=== PATIENT | male | born 1950 | race Caucasian/White ===

== ENCOUNTER → 2020-12-27 08:32 | Outpatient (CLI) | payer MEDICARE, SELFPAY ==
--- NOTE | ~2020-12-27 | XR_ITS ---
EXAMINATION: XR knee RT min 4V DATE: 12/27/2020 09:15 INDICATION: Right knee pain. TECHNIQUE: 4 views of right knee were obtained. COMPARISON: None. FINDINGS: There is varus angulation at the knee. No fracture. There is severe osteoarthritis of media l compartment and mild osteoarthritis of lateral and patellofemoral compartments. No knee joint effus ion. IMPRESSION: 1. Severe right knee osteoarthritis. Reviewed, dictated and finalized at location A. STEWARD
== END ==
PROVIDERS: PCP Family Medicine; Visit Provider Family Medicine
DX: M25.569 Pain in unspecified knee (principal); M17.11 Unilateral primary osteoarthritis, right knee
CPT/HCPCS: 73564

== ENCOUNTER 2021-03-19 23:36 | Emergency (ER) | payer MEDICARE, SELFPAY ==
--- NOTE | ~2021-03-19 | XR_ITS ---
EXAMINATION: XR chest 1V portable DATE: 03/20/2021 00:20 INDICATION: Weakness. TECHNIQUE: A single frontal view of the chest was obtained. COMPARISON: None. FINDINGS: There is no pneumonia, pleural effusion, or pneumothorax. The heart size is normal. There i s a healing/healed fracture of left sixth rib. There is a right shoulder arthroplasty. IMPRESSION: 1. No acute cardiopulmonary disease. Reviewed, dictated and finalized at location B.
[2021-03-19 23:38] VITALS: BP 113/98; PULSE 131; RESP 16; TEMP 36.4; O2SAT 95
--- NOTE | 2021-03-19 23:52 | ECG_ITS ---
Measurements Intervals [place] Rate: 128 P: [place]: 0 QRS: -58 QRSD: 114 T: 43 QT: 276 QTc: 403 Interpretive Statements ATRIAL FLUTTER/TACHYCARDIA WITH RAPID VENTRICULAR RESPONSE DELAYED PRECORDIAL R/S TRANSITION INFERIOR INFARCT, AGE INDETERMINATE BASELINE ARTIFACT- I, II, III, AVR, AVL, AVF, V1-V2, V6 ABNORMAL ECG Electronically Signed On 03-20-2021 7:17:28 CDT by Erick Lawrence D.O.
--- NOTE | 2021-03-19 23:54 | ED.GENADULT ---
HPI - General Adult General Chief complaint: Recheck/Abnormal Lab/Rx Stated complaint: out of meds/decreased mobility Time Seen by Provider: 03/19/21 23:43 Source: patient Mode of arrival: EMS Limitations: no limitations History of Present Illness HPI narrative: This is a 70 year old male with Parkinson's who presents for evaluation of increased stiffness. He states he ran out of his amantadine on Wednesday so he has been having increased stiffness. He states he came because he is having decreased mobility. He states there has been a mix up with the pharmacy so he is unsure when his medication will be filled. He has been able to take his other Parkinson's medications. HE has been noticed to be tachycardic on his initial vitals. He denies history of tachycardia or arrhythmia. He denies chest pain, cough, nausea, vomiting, fever or abdominal pain. He reports mild sob due to his stiffness. He does reports constipation. Related Data Home Medications Medication Instructions Recorded Confirmed amantadine HCl 100 mg capsule 100 mg PO TID cap 06/11/20 entacapone 200 mg tablet 200 mg PO .five times daily tablet 06/11/20 mirtazapine 30 mg tablet 30 mg PO .qhs tablet 06/11/20 tizanidine 2 mg tablet 2 mg PO QPM tablet 06/11/20 carbidopa 25 mg-levodopa 100 mg 1 tablet PO .COMPLEX tablet 12/19/20 tablet Allergies Allergy/AdvReac Type Severity Reaction Status Date / Time No Known Allergies Allergy Verified 03/20/21 00:16 Review of Systems Review of Systems: All systems reviewed & are unremarkable except as noted in HPI and below PMFSH Past Medical History Medical History H/O major depression Parkinson's Disease Surgical History Surgical History H/O cervical discectomy H/O knee surgery Traumatic fracture L knee 1968 S/P shoulder replacement Family History Family History Mother Diabetes mellitus Depression Cerebrovascular accident Glaucoma Melanoma Father Cerebrovascular accident Heart disease Hyperlipidemia Sibling Hyperlipidemia Heart disease Depression Lung cancer Grandparent Diabetes mellitus Social History Social History Smoking status: Never smoker Alcohol intake: current Substance use: never Substance use type: does not use Gender identity (if verbalized by the patient): Male Exam Const: General: no acute distress and alert HENMT: Head: normocephalic and atraumatic Face and sinus: face symmetric Eyes: EOM: EOMs intact bilaterally Resp: Effort & Inspection: normal respiratory effort and no retractions Auscultation: clear to auscultation bilaterally Cardio: Rate: tachycardic Heart sounds: no murmurs GI: GI Palp: Yes Soft to palpation, No Tenderness to palpation present (GI) and No Guarding due to palpation present (GI) Auscultation: normal bowel sounds Skin: General skin exam: normal color Rashes: no rashes Neuro: General: patient oriented x3 and moves all extremities Extrem: General: no pedal edema Psych: Mental Status: mental status grossly normal Affect: normal affect Course Reevaluation(s) Reevaluation #1: PAtient converted to normal sinus rhythm after 10 mg IV diltiazem Date: 03/20/21 Time: 01:02 Reevaluation #2: PAtient has remained in sinus. He states he does not need any addition medication in ER right now. I discussed plan to discharge home. 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 Date: 03/20/21 Time: 01:52 Consultations Consultation #1: I Discussed case with Dr Montgomery. Patient presented with tachycardia likely afib but he is in sinus rhythm with rate 85. She agrees to hold off on medication change. No anticoagulation. He is chads 1 . She will followup as out
[2021-03-20] VITALS (8 sets, daily range): BP systolic 102–130; BP diastolic 81–89; PULSE 72–91; RESP 15–21; O2SAT 92–97
[2021-03-20 00:04] LABS: Glucose Point of Care 124 (65-105)
[2021-03-20] MEDS: SODIUM CHLORIDE 0.9% IV 1,000 ML 999 ML IV CONT (00:11)
[2021-03-20 00:15] LABS: Basophils Absolute Auto 0.1 K/mm3 (0.0-0.1); Basophils Percent Auto 0.8 % (0.2-1.2); Eosinophils Absolute Auto 0.1 K/mm3 (0-0.3); Eosinophils Percent Auto 1.3 % (0-4.4); Hematocrit 48.3 % (42.0-52.0); Hemoglobin 17.1 g/dL (14.0-18.0); Immature Granulocyte Absolute 0.07 K/mm3 (0.00-0.031); Immature Granulocyte Percent A 0.8 % (0-0.5); Lymphocytes Absolute Auto 2.26 K/mm3 (0.9-3.2); Lymphocytes Percent Auto 25.1 % (18.3-44.2); Mean Corpuscular HGB Conc 35.4 g/dl (32-36); Mean Corpuscular Hemoglobin 33.6 pg (26-34); Mean Corpuscular Volume 94.9 fl (80-100); Mean Platelet Volume 9.3 fl (7.4-10.4); Monocytes Absolute Auto 1.1 K/mm3 (0.1-0.6); Monocytes Percent Auto 11.7 % (2.6-8.5); Neutrophils Absolute Auto 5.4 K/mm3 (1.3-6.7); Neutrophils Percent Auto 60.3 % (45.5-73.1); Platelet Count Result 297 k/mm3 (150-375); Red Blood Count 5.09 M/mm3 (4.6-6.20); Red Cell Distribution Width 11.9 % (11.5-14.5)
[2021-03-20 00:25] LABS: Alanine Aminotransferase 6 U/L (4-50); Albumin Level 4.6 g/dL (3.5-5.1); Alkaline Phosphatase 185 U/L (38-126); Anion Gap 9 mmol/L (8-16); Aspartate Amino Transferase 29 U/L (17-59); Blood Urea Nitrogen 31 mg/dL (9-20); Calcium 9.5 mg/dL (8.4-10.2); Carbon Dioxide 22 mmol/L (22-30); Chloride 108 mmol/L (98-107); Estimated CRCL calculation 74 ml/min; Estimated Glomerular Filt Rate > 60; Glucose 118 mg/dL (75-110); Magnesium 1.9 mg/dL (1.6-2.3); Potassium 4.3 mmol/L (3.4-5.0); Sodium 139 mmol/L (137-145)
[2021-03-20 00:26] LABS: Lactic Acid Reflex 1.1 mmol/L (0.7-2.1)
[2021-03-20] MEDS: dilTIAZem HCl INJ 25 MG/5 ML VIAL 10 MG IV PUSH (00:27)
[2021-03-20 00:34] LABS: D Dimer 0.27 ug/mL (<0.48)
--- NOTE | 2021-03-20 00:43 | ECG_ITS ---
Measurements Intervals [place] Rate: 70 P: 36 [place]: 183 QRS: -48 QRSD: 98 T: 29 QT: 363 QTc: 394 Interpretive Statements SINUS RHYTHM VENTRICULAR PREMATURE COMPLEX LEFT ANTERIOR FASCICULAR BLOCK BASELINE ARTIFACT- I, II, III, AVR, AVL, AVF, V1-V6 ABNORMAL ECG Electronically Signed On 03-20-2021 7:17:59 CDT by Erick Lawrence D.O.
[2021-03-20] MEDS: amantadine HCL 100 MG CAPSULE PO (01:15)
[2021-03-20 02:20] LABS: Add Urine Microscopic? YES; Appearance Urine Clear (Clear); Bilirubin Urine Negative (Negative); Blood Urine Negative (Negative); Color Urine Yellow (Yellow); Glucose Urine UA Negative (Negative); Ketones Urine Trace mg/dL (Negative); Leukocyte Esterase Ur Negative LEU/UL (Negative); Mucus Urine Rare /lpf; Nitrate Urine Negative (Negative); Protein Urine Negative (Negative); RBC Urine 0-2 /hpf (0-2); Specific Grav Ur 1.017 (1.001-1.035); Urobilinogen Urine Negative mg/dL (<2.0); WBC Urine 0-3 /hpf
[2021-03-20 08:25] LABS: INR 0.9
[2021-03-20 08:26] LABS: Partial Thromboplastin Time 27.4 SECONDS (22.3-36.8)
== END 2021-03-20 03:00 | disposition home or self-care (01) ==
PROVIDERS: Emergency Provider General Practice; PCP Family Medicine
DX: G20 Parkinson's disease (principal); I48.92 Unspecified atrial flutter; F32.9 Major depressive disorder, single episode, unspecified; Z96.619 Presence of unspecified artificial shoulder joint; R00.0 Tachycardia, unspecified; R94.31 Abnormal electrocardiogram [ECG] [EKG]; I49.3 Ventricular premature depolarization; I44.4 Left anterior fascicular block; R06.02 Shortness of breath
CPT/HCPCS: 36415; 71045; 80053; 81001; 82948; 83605; 83735; 85025; 85380; 85610; 85730; 93005; 96365; 99284; A9270; J7030

== ENCOUNTER 2021-11-28 14:00 | Emergency (ER) | payer OTHER, MEDICARE, SELFPAY ==
--- NOTE | ~2021-11-28 | XR_ITS ---
EXAMINATION: XR knee LT min 4V DATE: 11/28/2021 14:49 INDICATION: Left knee pain. TECHNIQUE: 4 views of left knee were obtained. COMPARISON: None. FINDINGS: Bone alignment is normal. No fracture. There is an osteochondroma of medial tibial metaphys is. There is mild tricompartmental osteoarthritis characterized by marginal osteophytes. No joint spa ce narrowing. There is a moderate-sized knee joint effusion. IMPRESSION: 1. Mild left knee osteoarthritis. 2. Moderate-sized left knee joint effusion. Reviewed, dictated and finalized at location A. E OPERATOR
[2021-11-28 14:27] VITALS: BP 149/88; PULSE 60; RESP 14; TEMP 36.7; O2SAT 98
--- NOTE | 2021-11-28 14:42 | ED.FALL ---
HPI - Fall General Chief Complaint: Fall Stated Complaint: faal, left knee pain Time Seen by Provider: 11/28/21 14:33 Source: patient Mode of arrival: wheelchair Limitations: no limitations History of Present Illness HPI Narrative: This is a 70 year old male that presents to the ER for left knee pain after a fall today. Reports he tripped over a cart and work. Reports landing directly onto his left knee. Reports pain and swelling in the knee. Reports decreased ROM due to pain. Denies hitting his head, loss of consciousness, other injuries, or numbness. Related Data Home Medications Medication Instructions Recorded Confirmed entacapone 200 mg tablet 200 mg PO .five times daily tablet 06/11/20 03/26/21 mirtazapine 30 mg tablet 30 mg PO .qhs tablet 06/11/20 03/26/21 tizanidine 2 mg tablet 2 mg PO QPM tablet 06/11/20 03/26/21 carbidopa 25 mg-levodopa 100 mg 1 tablet PO .COMPLEX tablet 12/19/20 03/26/21 tablet carbidopa ER 50 mg-levodopa 200 mg 1 tablet PO QHS 10/17/21 tablet,extended release Allergies Allergy/AdvReac Type Severity Reaction Status Date / Time No Known Allergies Allergy Verified 10/17/21 08:51 Review of Systems Review of Systems: CONSTITUTIONAL: Denies fever MUSCULOSKELETAL: Reports joint pain, and myalgia. NEUROLOGIC: Denies numbness, or weakness. All systems reviewed & are unremarkable except as noted in HPI and below PMFSH Past Medical History Medical History H/O major depression Parkinson's Disease Surgical History Surgical History H/O cervical discectomy H/O knee surgery Traumatic fracture L knee 1968 S/P shoulder replacement Family History Family History Mother Diabetes mellitus Depression Cerebrovascular accident Glaucoma Melanoma Father Cerebrovascular accident Heart disease Hyperlipidemia Sibling Hyperlipidemia Heart disease Depression Lung cancer Grandparent Diabetes mellitus Social History Social History Second hand tobacco smoke exposure: No Alcohol intake: current Alcohol use details: rare Substance use: never Substance use type: does not use Gender identity (if verbalized by the patient): Male Exam Narrative: GENERAL: Well-appearing, well-nourished, and in no acute distress. HEAD: Normocephalic, atraumatic. EYES: EOMI. EXTREMITIES: Normal range of motion. Mild edema about the left knee anteriorly. Normal DP pulses. Normal sensation SKIN: Warm, dry, no rash. NEURO: No focal deficits. Alert and oriented x3. PSYCH: Normal mood and affect Course Vital Signs Vital signs: Vital Signs Temperature 98.0 F 11/28/21 14:27 Pulse Rate 60 11/28/21 14:27 Respiratory Rate 14 11/28/21 14:27 Blood Pressure 149/88 H 11/28/21 14:27 Pulse Oximetry 98 11/28/21 14:27 Temperature 98.0 F 11/28/21 14:27 Pulse Rate 60 11/28/21 14:27 Respiratory Rate 14 11/28/21 14:27 Blood Pressure 149/88 H 11/28/21 14:27 Pulse Oximetry 98 11/28/21 14:27 MDM - Fall MDM Narrative Medical decision making narrative: This is a 70-year-old male that presents the emergency department after a ground-level fall today with left knee pain. Patient is neurologically intact. Left knee x-ray is without acute osseous abnormalities. Does show a moderate size left knee joint effusion. Patient placed in an Maciel wrap and instructed to use walker. Will be given orthopedics for follow-up. He is stable and felt appropriate for further outpatient evaluation. He was given warnings to return to the ER Imaging Data Radiologist's impression: ITS Impressions Knee X-Ray 11/28/21 14:53 IMPRESSION: 1. Mild left knee osteoarthritis. 2. Moderate-sized left knee joint effusion. Critical Care Time Critical Care T
== END 2021-11-28 15:45 | disposition home or self-care (01) ==
PROVIDERS: Emergency Provider Emergency Medicine; PCP Family Medicine
DX: S83.92XA Sprain of unspecified site of left knee, initial encounter (principal); G20 Parkinson's disease; F32.9 Major depressive disorder, single episode, unspecified; W01.0XXA Fall on same level from slipping, tripping and stumbling without subsequent striking against object, initial encounter
CPT/HCPCS: 73564; 99283

== ENCOUNTER → 2022-04-07 14:02 | Outpatient (CLI) | payer MEDICARE, SELFPAY ==
--- NOTE | ~2022-04-07 | XR_ITS ---
XR knee RT 3V DATE: 04/07/2022 14:47 INDICATION: Right knee pain TECHNIQUE: AP, lateral, sunrise views COMPARISON: 12/27/2020 right knee FINDINGS: Again noted is prominent medial compartment joint space narrowing and medial as well as lat eral and patellofemoral periarticular spurring. There is varus deformity of the knee. There is mild to moderate osteopenia. No fracture or dislocation. Mild suprapatellar bursa knee joint effusion is suggested. No radiopaque intra-articular loose body or chondrocalcinosis, periosteal reaction or bone destructio n is evident. IMPRESSION: Tricompartment osteophytosis, most severe at the medial compartment Reviewed, dictated and finalized at location B.
== END ==
PROVIDERS: PCP Family Medicine; Visit Provider Physician Assistant Medical
DX: M25.561 Pain in right knee (principal); M25.761 Osteophyte, right knee
CPT/HCPCS: 73562

== ENCOUNTER 2022-06-26 13:36 | Emergency (ER) | payer MEDICARE, SELFPAY ==
--- NOTE | ~2022-06-26 | XR_ITS ---
EXAMINATION: XR shoulder LT 1V, XR clavicle LT DATE: 06/26/2022 14:15 INDICATION: Left shoulder pain post fall TECHNIQUE: 1. AP view of the left shoulder was obtained. 2. AP and angled AP views of the left clavicle were obtained.. COMPARISON: Chest radiograph dated 03/20/2021 FINDINGS: Bone alignment is normal. Chronic healed fractures at the posterior left fifth and anterior left four th and fifth ribs which can be seen on the prior chest radiograph. No other fractures identified. Spe cifically no fracture of the left clavicle. Mild to moderate left glenohumeral and acromioclavicular osteoarthritis. Visualized portions of the lungs are clear. Soft tissues are unremarkable. IMPRESSION: Mild to moderate left apical mid clavicular and glenohumeral osteoarthritis. No acute osseous abnorma lity. Reviewed, dictated and finalized at location A. IMPRESSION: Mild to moderate left apical mid clavicular and glenohumeral osteoarthritis. No acute osseous abnormality.
[2022-06-26 13:52] VITALS: BP 116/81; PULSE 77; RESP 18; TEMP 36.7; O2SAT 98
--- NOTE | 2022-06-26 14:49 | ED.FALL ---
HPI - Fall General Chief Complaint: Fall Stated Complaint: fall with left shoulder pain Time Seen by Provider: 06/26/22 14:27 Source: RN notes reviewed History of Present Illness HPI Narrative: Patient presents emergency room from home for fall. Patient states just prior to arrival he was walking when he had not lifted his foot high enough and tripped over there the sidewalk states he fell and had placed his left arm out to brace his fall he states he has pain in his left anterior shoulder since the fall he denies striking his head or loss of consciousness denies any neck pain chest pain shortness of breath denies any numbness or tingling in the extremities denies any other extremity pain Related Data Home Medications Medication Instructions Recorded Confirmed entacapone 200 mg tablet 200 mg PO .five times daily 06/11/20 04/06/22 mirtazapine 30 mg tablet 30 mg PO .qhs 06/11/20 04/06/22 tizanidine 2 mg tablet 2 mg PO QPM 06/11/20 04/06/22 carbidopa 25 mg-levodopa 100 mg 1 tablet PO .COMPLEX 12/19/20 04/06/22 tablet carbidopa ER 50 mg-levodopa 200 mg 1 tablet PO QHS 10/17/21 04/06/22 tablet,extended release fluoxetine 20 mg capsule 20 mg PO DAILY 04/06/22 04/06/22 Allergies Allergy/AdvReac Type Severity Reaction Status Date / Time No Known Allergies Allergy Verified 06/26/22 13:37 Review of Systems Review of Systems: Gen.: Denies fevers or chills Eyes: Denies eye pain or visual change ENT: Denies congestion Respiratory: Denies shortness of breath or cough CV: Denies chest pain or palpitations GI: Denies abdominal pain nausea, emesis Musculoskeletal: See HPI Neuro: Denies numbness, tingling, weakness or focal weakness Skin: Denies rash Except as documented, all other systems reviewed and negative [facility] Past Medical History Medical History Dizziness H/O major depression Low back ache Parkinson's Disease Right knee pain Surgical History Surgical History H/O cervical discectomy H/O knee surgery Traumatic fracture L knee 1968 S/P shoulder replacement Family History Family History Mother Diabetes mellitus Depression Cerebrovascular accident Glaucoma Melanoma Father Cerebrovascular accident Heart disease Hyperlipidemia Sibling Hyperlipidemia Heart disease Depression Lung cancer Grandparent Diabetes mellitus Social History Social History Smoking status: Never smoker Second hand tobacco smoke exposure: No Alcohol intake: current Alcohol use details: rare Substance use: never Substance use type: does not use Gender identity (if verbalized by the patient): Male Agree to blood products: Yes Exam Narrative: APPEARANCE: No acute distress, nontoxic, resting in bed EYES: EOMI HEENT: Normocephalic, atraumatic, OMM Neck: Supple, no midline tenderness palpation full range of motion without pain RESPIRATORY: No respiratory distress Clear to auscultation bilaterally with no rhonchi wheezing or rales. CARDIOVASCULAR: Regular rate and rhythm without murmurs rubs or gallops. ABDOMINAL: Soft, nontender, MUSCULOSKELETAl: Moves all extremities. No clubbing, cyanosis or edema. No tenderness of the right upper extremity bilateral lower extremities tender palpation of the right anterior shoulder as well as at the anterior portion of the clavicle no swelling or ecchymosis pain with flexion or abduction of the shoulder greater than 90 degrees no tenderness left elbow or wrist, radial pulse 2+ neurovascular intact NEURO: Awake and alert. Following commands, speech normal, no focal deficits SKIN:: Warm, dry. No rashes lesions or abrasions PSYCHIATRIC: Normal affect/mood, Course Course Emergency Course: Discussed with patient results of workup and diagnosis.
[2022-06-26] MEDS: IBUPROFEN 600 MG TABLET PO (15:02)
== END 2022-06-26 15:14 | disposition home or self-care (01) ==
LOC: ANHED 14:59
PROVIDERS: Emergency Provider Emergency Medicine; PCP Family Medicine
DX: S40.012A Contusion of left shoulder, initial encounter (principal); G20 Parkinson's disease; F32.9 Major depressive disorder, single episode, unspecified; Z96.619 Presence of unspecified artificial shoulder joint; M19.012 Primary osteoarthritis, left shoulder; W01.0XXA Fall on same level from slipping, tripping and stumbling without subsequent striking against object, initial encounter
CPT/HCPCS: 73000; 73020; 99284; A9270

== ENCOUNTER 2022-09-23 12:44 | Day surgery (SDC) | payer MEDICARE, SELFPAY ==
[2022-09-11 11:17] VITALS: BMI 25.9
--- NOTE | 2022-09-22 12:37 | PM.HPGS ---
History of Present Illness History of Present Illness Consent: Risks, benefits, and alternatives have been discussed and questions answered. Patient agrees to proceed with procedure. Chief complaint: Neoplasm Screening Narrative: Alan Mejia is a 71 year old male referred for colon cancer screening. Review of Systems Review of Systems: All systems reviewed & are unremarkable except as noted in HPI and below PMFSH Past Medical History Medical History Dizziness H/O major depression Low back ache Parkinson's Disease Right knee pain Surgical History Surgical History H/O cervical discectomy H/O knee surgery Traumatic fracture L knee 1968 S/P shoulder replacement Family History Family History Mother Diabetes mellitus Depression Cerebrovascular accident Glaucoma Melanoma Father Cerebrovascular accident Heart disease Hyperlipidemia Sibling Hyperlipidemia Heart disease Depression Lung cancer Grandparent Diabetes mellitus Social History Social History Smoking status: Never smoker Second hand tobacco smoke exposure: No Alcohol intake: never Alcohol use details: rare Substance use: never Substance use type: does not use Living arrangements: alone Gender identity (if verbalized by the patient): Male Spiritual care concerns: No Agree to blood products: Yes Meds Home Medications and Allergies Home Medications Medication Instructions Recorded Confirmed Type entacapone 200 mg tablet 200 mg PO .five times daily 06/11/20 09/23/22 History mirtazapine 30 mg tablet 30 mg PO .qhs 06/11/20 09/23/22 History tizanidine 2 mg tablet 2 mg PO QPM 06/11/20 09/23/22 History carbidopa 25 mg-levodopa 100 mg See Rx Instructions .Route .COMPLEX 12/19/20 09/23/22 History tablet amantadine HCl 100 mg capsule 100 mg PO TID #30 caps 03/20/21 09/23/22 Rx carbidopa ER 50 mg-levodopa 200 mg 1 tablet PO QHS 10/17/21 09/23/22 History tablet,extended release fluoxetine 20 mg capsule 20 mg PO DAILY 04/06/22 09/23/22 History multivitamin 1 tablet PO DAILY 07/02/22 09/23/22 History ibuprofen 200 mg tablet 400 mg PO HS PRN Pain (Scale Score 09/11/22 09/23/22 History 1-3) omega 9-uxg-xmj-fish oil 1,200 mg 2 cap PO DAILY 09/11/22 09/23/22 History (144 mg-216 mg) capsule (Fish Oil) polyethylene glycol 3350 17 17 g PO DAILY 09/11/22 09/23/22 History gram/dose oral powder (Miralax) vitamin B complex (B 1 tablet PO DAILY 09/11/22 09/23/22 History Complex-Vitamin B12 tablet) vitamin E 30 unit capsule 3 unit PO DAILY 09/11/22 09/23/22 History Allergies Allergy/AdvReac Type Severity Reaction Status Date / Time No Known Allergies Allergy Verified 09/23/22 13:07 Exam Const: General: alert Orientation/consciousness: patient oriented x3 Resp: Auscultation: clear to auscultation bilaterally Cardio: Rhythm: regular rhythm GI: GI Palp: Yes Soft to palpation and No Tenderness to palpation present (GI) Neuro: General: patient oriented x3 Assessment and Plan Assessment and plan (1) Colon cancer screening: Code(s): Z12.11 - Encounter for screening for malignant neoplasm of colon Status: Acute Assessment and Plan: Colonoscopy with possible biopsy or polypectomy or cautery or injection of substances.
[2022-09-23 13:10] VITALS: BMI 24.0
[2022-09-23 13:27] VITALS: BP 134/81; PULSE 65; RESP 20; TEMP 36.7; O2SAT 99
[2022-09-23] MEDS: LACTATED RINGERS 1,000 ML 150 ML IV CONT (13:28)
--- NOTE | 2022-09-23 13:35 | WPDANESEPPF ---
Anes - Initial Pre Proc Eval Procedure: Operation Date: 09/23/22 14:15 Proposed Procedures p Screening Colonoscopy - Sheldon James MD Date/Time: 09/23/22 13:35 Surgeon: Sheldon James MD Pre Op Diagnosis: Neoplasm Screening Patient Data Age: 71 Gender: M Height: 1.7 m Weight: 69.7 kg Last Vital Signs Temp 36.7 C 09/23/22 13:27 Pulse 65 09/23/22 13:27 Resp 20 09/23/22 13:27 BP 134/81 09/23/22 13:27 Pulse Ox 99 09/23/22 13:27 O2 Del Method Room Air 09/23/22 13:27 Allergies Allergy/AdvReac Type Severity Reaction Status Date / Time No Known Allergies Allergy Verified 09/23/22 13:07 Home Medications Medication Instructions Recorded Confirmed Type entacapone 200 mg tablet 200 mg PO .five times daily 06/11/20 09/23/22 History mirtazapine 30 mg tablet 30 mg PO .qhs 06/11/20 09/23/22 History tizanidine 2 mg tablet 2 mg PO QPM 06/11/20 09/23/22 History carbidopa 25 mg-levodopa 100 mg See Rx Instructions .Route .COMPLEX 12/19/20 09/23/22 History tablet amantadine HCl 100 mg capsule 100 mg PO TID #30 caps 03/20/21 09/23/22 Rx carbidopa ER 50 mg-levodopa 200 mg 1 tablet PO QHS 10/17/21 09/23/22 History tablet,extended release fluoxetine 20 mg capsule 20 mg PO DAILY 04/06/22 09/23/22 History multivitamin 1 tablet PO DAILY 07/02/22 09/23/22 History ibuprofen 200 mg tablet 400 mg PO HS PRN Pain (Scale Score 09/11/22 09/23/22 History 1-3) omega 3-cln-gtu-fish oil 1,200 mg 2 cap PO DAILY 09/11/22 09/23/22 History (144 mg-216 mg) capsule (Fish Oil) polyethylene glycol 3350 17 17 g PO DAILY 09/11/22 09/23/22 History gram/dose oral powder (Miralax) vitamin B complex (B 1 tablet PO DAILY 09/11/22 09/23/22 History Complex-Vitamin B12 tablet) vitamin E 30 unit capsule 3 unit PO DAILY 09/11/22 09/23/22 History Patient hx anesthesia problems: none Family hx anesthesia problems: none Results Review: All pre-operative results and documents have been reviewed as part of the pre-operative evaluation. [facility] Past Medical History Medical History Dizziness H/O major depression Low back ache Parkinson's Disease Right knee pain Surgical History Surgical History H/O cervical discectomy H/O knee surgery Traumatic fracture L knee 1968 S/P shoulder replacement Family History Family History Mother Diabetes mellitus Depression Cerebrovascular accident Glaucoma Melanoma Father Cerebrovascular accident Heart disease Hyperlipidemia Sibling Hyperlipidemia Heart disease Depression Lung cancer Grandparent Diabetes mellitus Social History Social History Smoking status: Never smoker Second hand tobacco smoke exposure: No Alcohol intake: never Alcohol use details: rare Substance use: never Substance use type: does not use Living arrangements: alone Gender identity (if verbalized by the patient): Male Spiritual care concerns: No Agree to blood products: Yes Anes - Eval Final PreProcedure Day of Procedure 09/23/22 13:35 Patient weight: normal Heart: regular rate and rhythm Lungs: clear to auscultation Airway: Mallampati scale class II Neurological: alert and oriented ASA classification: III Emergent: no Anesthetic plan: proceed Anesthesia type and monitoring: general GIVS and standard monitoring Results Review: All pre-operative results and documents have been reviewed as part of the pre-operative evaluation. Informed Consent: The patient's anesthetic plan and its attendant risks and benefits were discussed with the patient/family/POA. Questions were solicited and answers provided to the satisfaction of the patient/family/POA.
[2022-09-23 14:35] VITALS: BP 97/65; PULSE 57; RESP 20; O2SAT 99
[2022-09-23 14:45] VITALS: BP 111/62; PULSE 49; RESP 20; O2SAT 100
--- NOTE | 2022-09-23 14:52 | WPDANESPN ---
Anes - Prog Note Post-Op Date/Time: 09/23/22 14:52 Cardiovascular status: normal Respiratory status: normal Airway patency: baseline Mental status: baseline Post-Op hydration status: normal Vital Signs: Last Vital Signs Temp 36.7 C 09/23/22 13:27 Pulse 49 L 09/23/22 14:45 Resp 20 09/23/22 14:45 BP 111/62 09/23/22 14:45 Pulse Ox 100 09/23/22 14:45 O2 Del Method Room Air 09/23/22 14:45 Pain Score (VAS): 0/10 I/O: Intake & Output 09/22/22 09/23/22 09/23/22 23:59 07:59 15:59 Intake Total 700 Balance 700 Patient Feedback: Patient satisfied with anesthetic care.
[2022-09-23 14:55] VITALS: BP 137/86; PULSE 54; RESP 20; O2SAT 100
== END 2022-09-23 15:19 | disposition home or self-care (01) ==
PROVIDERS: PCP Family Medicine; Visit Provider Internal Medicine Gastroenterology
PROC: 0DJD8ZZ Inspection of Lower Intestinal Tract, Via Natural or Artificial Opening Endoscopic (ICD-10-PCS; CPT 45378; principal; 2022-09-23 14:15)
DX: Z12.11 Encounter for screening for malignant neoplasm of colon (principal)
CPT/HCPCS: 45378

== ENCOUNTER 2024-02-22 09:28 | Emergency (ER) | payer MEDICARE, SELFPAY ==
--- NOTE | ~2024-02-22 | CT_ITS ---
EXAMINATION: CT lumbar spine wo con DATE: 02/22/2024 10:17 INDICATION: Low back pain. TECHNIQUE: Computed tomography (CT) of the lumbar spine was performed without intravenous contrast. A utomated exposure control and iterative reconstruction technique were employed. The dose-length produ ct was 458.74 mGy-cm. COMPARISON: None FINDINGS: There is 18 degrees levoscoliosis of lumbar spine. There is 3 mm anterolisthesis of T11 on T12, 4 mm retrolisthesis of L1 on L2 and L2 on L3. There is mild chronic anterior wedging of T12 vert ebral body. There is severely decreased disc height at T10-T11, T11-T12, and L1-L2 through L5-S1. Rig ht ilium demonstrates cortical and trabecular thickening, consistent with Paget disease. The followin g disc levels are specifically discussed: L1-L2: The disc is bulging. There is mild bilateral facet joint osteoarthritis. There is moderate brandy ateral neural foraminal stenosis. There is mild central canal stenosis. L2-L3: The disc is bulging. There is moderate right and mild left facet joint osteoarthritis. There i s moderate right and mild left neural foraminal stenosis. There is mild central canal stenosis. L3-L4: The disc is bulging. There is severe bilateral facet joint osteoarthritis. There is mild bilat eral neural foraminal stenosis. There is mild central canal stenosis. L4-L5: The disc is bulging. There is severe bilateral facet joint osteoarthritis. There is moderate a nd moderate left neural foraminal stenosis. There is mild central canal stenosis. L5-S1: The disc is bulging. There is severe bilateral facet joint osteoarthritis. There is mild right and moderate left neural foraminal stenosis. There is mild central canal stenosis. IMPRESSION: 1. Severe lumbar spondylosis. 2. Lumbar levoscoliosis. Reviewed, dictated and finalized at location E.
[2024-02-22 09:33] VITALS: BP 134/87; PULSE 64; RESP 16; TEMP 36.3; O2SAT 95
[2024-02-22 09:37] VITALS: BP 134/87; O2SAT 97
--- NOTE | 2024-02-22 09:45 | PC.NURSE ---
Agree with assessments by Sopihe Ceballos certified nursing attendant.
--- NOTE | 2024-02-22 09:46 | ED.BACK ---
HPI - Back Pain/Injury General Chief Complaint: Back Pain/Injury Stated Complaint: back pain Time Seen by Provider: 02/22/24 09:37 Source: patient Mode of arrival: ambulatory Limitations: no limitations History of Present Illness HPI Narrative: This is a 73 year old male that presents to the ER for low back pain. Ongoing over the last 2 months. Reports the pain is mid low back. No known injuries or trauma. Worse upon standing. He has been taking Ibuprofen with little relief. Denies fever, dysuria, hematuria, numbness or weakness. Related Data Home Medications Medication Instructions Recorded Confirmed entacapone 200 mg tablet 200 mg PO .five times daily 06/11/20 12/28/23 mirtazapine 30 mg tablet 30 mg PO .qhs 06/11/20 12/28/23 tizanidine 2 mg tablet 2 mg PO QPM 06/11/20 12/28/23 carbidopa 25 mg-levodopa 100 mg See Rx Instructions .Route .COMPLEX 12/19/20 12/28/23 tablet carbidopa ER 50 mg-levodopa 200 mg 1 tablet PO QHS 10/17/21 12/28/23 tablet,extended release fluoxetine 20 mg capsule 20 mg PO DAILY 04/06/22 12/28/23 multivitamin 1 tablet PO DAILY 07/02/22 12/28/23 ibuprofen 200 mg tablet 400 mg PO HS PRN Pain (Scale Score 09/11/22 12/28/23 1-3) omega 3-snd-vwf-fish oil 1,200 mg 2 cap PO DAILY 09/11/22 12/28/23 (144 mg-216 mg) capsule (Fish Oil) polyethylene glycol 3350 17 17 g PO DAILY 09/11/22 12/28/23 gram/dose oral powder (Miralax) vitamin B complex (B 1 tablet PO DAILY 09/11/22 12/28/23 Complex-Vitamin B12 tablet) vitamin E 30 unit capsule 3 unit PO DAILY 09/11/22 12/28/23 Allergies Allergy/AdvReac Type Severity Reaction Status Date / Time No Known Allergies Allergy Verified 12/28/23 10:36 Review of Systems Review of Systems: CONSTITUTIONAL: Denies fever GENITOURINARY: Denies dysuria or hematuria. SKIN: Denies rash MUSCULOSKELETAL: Reports back pain, joint pain, and myalgia. NEUROLOGIC: Denies numbness, or weakness. All systems reviewed & are unremarkable except as noted in HPI and below PMFSH Past Medical History Medical History Dizziness H/O major depression Low back ache Muscle spasm of both lower legs Parkinson's Disease Surgical History Surgical History H/O cervical discectomy H/O knee surgery Traumatic fracture L knee 1968 S/P shoulder replacement Family History Family History Mother Diabetes mellitus Depression Cerebrovascular accident Glaucoma Melanoma Father Cerebrovascular accident Heart disease Hyperlipidemia Sibling Hyperlipidemia Heart disease Depression Lung cancer Grandparent Diabetes mellitus Social History Social History Smoking status: Never smoker Second hand tobacco smoke exposure: No Alcohol intake: never Alcohol use details: rare Substance use: never Substance use type: does not use Lack of Transportation: No Lack of Food: Never True Current Housing: I Have Housing Concerned About Future Housing: No Difficulty Paying Gas/Electric Bills: No Difficulty Paying for Meds: No Currently Unemployed: No Education: High School Diploma/GED Difficulty w/ Childcare or Family Care: No Living arrangements: alone Occupation/Education: retired Gender identity (if verbalized by the patient): Male Sexual Orientation (if Verbalized by the Patient): Straight or Heterosexual Spiritual care concerns: No Agree to blood products: Yes Exam Narrative: GENERAL: Well-appearing, well-nourished, and in no acute distress. HEAD: Normocephalic, atraumatic. EYES: EOMI. CHEST: Clear to auscultation. No respiratory distress. No wheezes rales or rhonchi HEART: Regular rate and rhythm. No murmur heard. Normal peripheral pulses. BACK: No midline spinal tenderness
[2024-02-22 10:56] VITALS: BP 115/69; PULSE 78; RESP 18; TEMP 36.8; O2SAT 99
== END 2024-02-22 11:00 | disposition home or self-care (01) ==
PROVIDERS: Emergency Provider Physician Assistant; PCP Family Medicine
DX: M54.50 Low back pain, unspecified (principal); M47.816 Spondylosis without myelopathy or radiculopathy, lumbar region; G20.A1 Parkinson's disease without dyskinesia, without mention of fluctuations; F32.A Depression, unspecified
CPT/HCPCS: 72131; 99284

== ENCOUNTER 2024-06-29 10:26 | Observation (INO) | payer MEDICARE, SELFPAY ==
[2024-06-29] VITALS (9 sets, daily range): BP systolic 112–175; BP diastolic 72–99; PULSE 55–65; RESP 14–20; TEMP 36.5–37.1; O2SAT 94–98; BMI 24.4
--- NOTE | ~2024-06-29 | CT_ITS ---
CT brain wo con Ordering provider: Kristie Jones PA-C History: 73 years Male with . LLE WEAKNESS . Comparison: None. Technique: CT of the head without contrast. Radiation reduction technique utilized. The dose-length product was 605.33 mGy-cm. FINDINGS: BRAIN PARENCHYMA AND CSF SPACES: Mild leukoaraiosis and diffuse cortical atrophy. Mild atheromatous d isease. No midline shift, mass effect or hemorrhage. The brain parenchyma and CSF spaces are otherwi se normal. VISUALIZED PARANASAL SINUSES: Well aerated. MASTOIDS: Well aerated. BONES: The bones appear intact. SOFT TISSUES: Visualized nasopharynx is normal. Superficial soft tissues are normal. IMPRESSION: No acute intracranial findings. Reviewed, dictated and finalized at location A.
--- NOTE | ~2024-06-29 | CT_ITS ---
EXAMINATION: CTA brain carotid DATE: 06/29/2024 10:56 INDICATION: Left lower extremity weakness. TECHNIQUE: Computed tomographic angiography (CTA) of the head was performed with 100 mL Omnipaque-350 intravenous contrast. CTA of the neck was performed with intravenous contrast. Automated exposure co ntrol and iterative reconstruction technique were employed. The dose-length product was 1205.51 mGy-c m. Maximum intensity projection and volume rendered 3D-reconstructions were created by the [employer] st on a separate workstation. COMPARISON: Head CT 06/29/2024 FINDINGS: HEAD CTA: There is no intracranial hemorrhage, acute infarction, or abnormal intracranial mass lesion . The ventricles are normal in size. The orbits are normal. The paranasal sinuses are clear. The mast oid air cells are normal. The vertebral arteries are codominant. There is no significant stenosis of basilar artery or the posterior cerebral arteries. There is no significant stenosis of the intracrani al internal carotid arteries or anterior or middle cerebral arteries. Anterior communicating artery i s normal. The posterior communicating arteries are normal. There is no aneurysm. NECK CTA: There is mild emphysema. 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 Ther e are no pathologically enlarged lymph nodes. There is no significant stenosis of the vertebral arter ies. There is plaque in the proximal internal carotid arteries. There is 0% stenosis of the proximal right internal carotid artery relative to normal distal artery lumen diameter (NASCET criteria). Ther e is 0% stenosis of the proximal left internal carotid artery relative to normal distal artery lumen diameter. There is severe cervical spondylosis. IMPRESSION: 1. Normal brain. 2. No aneurysm or significant intracranial canal stenosis. 3. 0% stenosis of the proximal internal carotid arteries relative to normal distal artery lumen diame ters (NASCET criteria). Reviewed, dictated and finalized at location A. IMPRESSION: 1. Normal brain. 2. No aneurysm or significant intracranial canal stenosis. 3. 0% stenosis of the proximal internal carotid arteries relative to normal dis noemi artery lumen diameters (NASCET criteria).
--- NOTE | ~2024-06-29 | MR_ITS ---
EXAMINATION: MR brain/brain stem wo/w con DATE: 06/30/2024 09:05 INDICATION: Transient ischemic attack. TECHNIQUE: Magnetic resonance imaging (MRI) of the brain and brainstem was performed without and with 15 mL MultiHance intravenous contrast. COMPARISON: Head CT 06/29/2024 FINDINGS: There are scattered areas of nonspecific increased T2-weighted signal intensity in the cere bral white matter, which is within normal limits for the patient's age. There is no intracranial hemo rrhage, acute infarction, or abnormal intracranial mass lesion. The ventricles are normal in size. Th e paranasal sinuses are clear. The orbits are normal. The mastoid air cells are normal. IMPRESSION: 1. Normal brain. Reviewed, dictated and finalized at location A. IMPRESSION: 1. Normal brain.
--- NOTE | ~2024-06-29 | XR_ITS ---
EXAMINATION: XR chest 1V portable DATE: 06/29/2024 11:19 INDICATION: Left lower extremity weakness. TECHNIQUE: A single frontal view of the chest was obtained. COMPARISON: Chest single view 03/20/2021 FINDINGS: There is mild atelectasis at left lung base. There is mild elevation of left hemidiaphragm. No pleural effusion or pneumothorax. The heart size is normal. There is a right shoulder arthroplast y. IMPRESSION: 1. Mild atelectasis at left lung base. Reviewed, dictated and finalized at location A.
--- NOTE | 2024-06-29 10:35 | ECG_ITS ---
Test Date: 2024-06-29 10:43:08 Measurements Intervals Tucker Rate: 58 P: 30 KS: 181 QRS: -42 QRSD: 102 T: 20 QT: 379 QTc: 373 Interpretive Statements SINUS BRADYCARDIA WITH OCCASIONAL VENTRICULAR PREMATURE COMPLEXES MARKED LEFT AXIS DEVIATION [QRS AXIS < -30] NONSPECIFIC T-WAVE ABNORMALITY abnormal ECG No previous ECG available for comparison Electronically Signed On 06-30-2024 10:55:44 CDT by Moise Medellin M.D.
--- NOTE | 2024-06-29 10:37 | ED.EXTPRO ---
HPI - Extremity Problem General Chief complaint: Neuro Symptoms/Deficit <Kristie Jones PA-C - Last Filed: 06/29/24 13:07> Stated complaint: LLE weakness <Kristie Jones PA-C - Last Filed: 06/29/24 13:07> History of Present Illness HPI Narrative: 73-year-old male with history of Parkinson's presents to the emergency department via EMS for left leg weakness that started at 9:45 a.m.. Patient states he was working in the garden at work when his leg felt extremely heavy and he cannot move it. States it felt like he was moving a cement block. He called 911 was presented to the ED for further evaluation. He does note that his Parkinson's seems to his fact his left side once his right but states this is never happened. His neurologist is at [facility]. He denies vision changes, facial weakness or numbness, or weakness or numbness, difficulty swallowing or talking. Denies fever, chest pain or shortness of breath. Denies recent GI bleed, he is not anticoagulated. Patient denies personal history of CVA or CAD but does state his family has history is of CVA. Denies hx of cancer, recent GI bleeds, hx of major surgeries or intracranial bleeds. <Kristie Jones PA-C - Last Filed: 06/29/24 13:07> Related Data Home medications: Home Medications Medication Instructions Recorded Confirmed entacapone 200 mg tablet 200 mg PO .five times daily 06/11/20 06/05/24 mirtazapine 30 mg tablet 30 mg PO .qhs 06/11/20 06/05/24 tizanidine 2 mg tablet 2 mg PO QPM 06/11/20 06/05/24 carbidopa 25 mg-levodopa 100 mg See Rx Instructions .Route .COMPLEX 12/19/20 06/05/24 tablet carbidopa ER 50 mg-levodopa 200 mg 1 tablet PO QHS 10/17/21 06/05/24 tablet,extended release fluoxetine 20 mg capsule 20 mg PO DAILY 04/06/22 06/05/24 multivitamin 1 tablet PO DAILY 07/02/22 06/05/24 ibuprofen 200 mg tablet 400 mg PO HS PRN Pain (Scale Score 09/11/22 06/05/24 1-3) omega 0-uyc-wth-fish oil 1,200 mg 2 cap PO DAILY 09/11/22 06/05/24 (144 mg-216 mg) capsule (Fish Oil) polyethylene glycol 3350 17 17 g PO DAILY 09/11/22 06/05/24 gram/dose oral powder (Miralax) vitamin B complex (B 1 tablet PO DAILY 09/11/22 06/05/24 Complex-Vitamin B12 tablet) vitamin E 30 unit capsule 3 unit PO DAILY 09/11/22 06/05/24 <Kristie Jones PA-C - Last Filed: 06/29/24 13:07> Allergies/Adverse reactions: Allergies Allergy/AdvReac Type Severity Reaction Status Date / Time No Known Allergies Allergy Verified 06/29/24 10:36 <Kristie Jones PA-C - Last Filed: 06/29/24 13:07> Review of Systems Review of Systems: All systems reviewed & are unremarkable except as noted in HPI and below <Kristie Jones PA-C - Last Filed: 06/29/24 13:07> [facility] Past Medical History Medical History: Medical History Dizziness H/O major depression Low back ache Muscle spasm of both lower legs Parkinson's Disease <Kristie Jones PA-C - Last Filed: 06/29/24 13:07> Surgical History Surgical History: Surgical History H/O cervical discectomy H/O knee surgery Traumatic fracture L knee 1968 S/P shoulder replacement <Kristie Jones PA-C - Last Filed: 06/29/24 13:07> Family History Family History: Family History Mother Diabetes mellitus Depression Cerebrovascular accident Glaucoma Melanoma Father Cerebrovascular accident Heart disease Hyperlipidemia Sibling Hyperlipidemia Heart disease Depression Lung cancer Grandparent Diabetes mellitus <Kristie Jones PA-C - Last Filed: 06/29/24 13:07> Social History Social History: Social History Smoking status: Never smoker Second hand tobacco smoke exposure: No Alcohol intake: never Alcohol use details: rare Substance u
[2024-06-29 10:54] LABS: Estimated CRCL calculation 59 ml/min; Estimated Glomerular Filt Rate > 60
[2024-06-29 11:12] LABS: Basophils Percent Auto 0.9 % (0.2-1.2); Eosinophils Absolute Auto 0.2 K/mm3 (0-0.3); Eosinophils Percent Auto 3.5 % (0-4.4); Hematocrit 43.5 % (42.0-52.0); Hemoglobin 15.1 g/dL (14.0-18.0); Immature Granulocyte Absolute 0.02 K/mm3 (0.00-0.031); Immature Granulocyte Percent A 0.4 % (0-0.5); Lymphocytes Absolute Auto 1.39 K/mm3 (0.9-3.2); Mean Corpuscular HGB Conc 34.7 g/dl (32-36); Mean Corpuscular Hemoglobin 34.7 pg (26-34); Mean Platelet Volume 9.2 fl (7.4-10.4); Monocytes Absolute Auto 0.6 K/mm3 (0.1-0.6); Monocytes Percent Auto 13.4 % (2.6-8.5); Neutrophils Absolute Auto 2.4 K/mm3 (1.3-6.7); Neutrophils Percent Auto 51.8 % (45.5-73.1); Platelet Count Result 236 k/mm3 (150-375); Red Blood Count 4.35 M/mm3 (4.6-6.20); Red Cell Distribution Width 11.9 % (11.5-14.5); White Blood Count 4.6 K/mm3 (4.5-10.0)
[2024-06-29 11:23] LABS: Glucose Point of Care 97 mg/dl (65-105)
[2024-06-29 11:26] LABS: Alanine Aminotransferase 10 U/L (6-50); Albumin Level 4.1 g/dL (3.5-5.1); Alkaline Phosphatase 131 U/L (38-126); Anion Gap 7 mmol/L (4-12); Aspartate Amino Transferase 35 U/L (17-59); Bilirubin,Total 0.9 mg/dL (0.2-1.3); Blood Urea Nitrogen 25 mg/dL (9-20); Carbon Dioxide 26 mmol/L (22-30); Chloride 102 mmol/L (98-107); Estimated CRCL calculation 65 ml/min; Estimated Glomerular Filt Rate > 60; Glucose 88 mg/dL (65-110); Potassium 4.4 mmol/L (3.4-5.0); Prothrombin Time 13.9 Seconds (11.1-14.7); Sodium 135 mmol/L (137-145)
[2024-06-29 11:27] LABS: Partial Thromboplastin Time 25.7 Seconds (22.3-36.8)
[2024-06-29 11:28] LABS: Add Urine Microscopic? NO; Appearance Urine Clear (Clear); Bilirubin Urine Negative (Negative); Blood Urine Negative (Negative); Color Urine Yellow (Yellow); Glucose Urine UA Negative (Negative); Ketones Urine Negative (Negative); Leukocyte Esterase Ur Negative LEU/UL (Negative); Nitrate Urine Negative (Negative); Protein Urine Negative (Negative); Urobilinogen Urine 0.2 mg/dL (<2.0)
[2024-06-29 11:37] LABS: Troponin I < 0.012 ng/mL (0.000-0.034)
[2024-06-29] MEDS: ASPIRIN 81 MG CHEWABLE TABLET 324 MG PO (11:42)
--- NOTE | 2024-06-29 14:06 | PM.IMHP ---
H&P: HPI History of Present Illness Date/Time: 06/29/24 14:06 Chief Complaint: Leg Weakness Narrative: 73 y/o M presents here with left lower extremity weakness with PMH of Parkinson's and depression. The patient presents here from work ([employer]) via EMS for further evaluation of left lower extremity weakness. Patient reports acute onset of weakness at 9:45 a.m. this morning while he was working outside in the [employer] center. 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 Patient attempted to put weight on the leg but it felt as though it would give out. He describes the weakness as concrete on his leg and heavy. Last known well at 09:30 a.m. Endorsing associated numbness that started at the hip and extended to his foot. Denies accompanying facial droop, dysarthria, upper extremity weakness, vision changes, or additional areas of focal numbness. Spontaneously resolved at 11:25 a.m. Patient [facility] with [facility]rology [facility] for [facility]'s. No prior history of CVA or similar symptoms/presentation. Currently lives at a [facility] independently at [facility]. Initial VS at presentation: 98.8? F, HR 57, RR 14, 156/81, and 94% RA. ED workup showed: No leukocytosis, no anemia, normal coags, sodium 135, creatinine 0.9 and GFR >60, initial troponin negative. UA unremarkable. Head CT showed no acute intracranial findings. CTA of the head and neck showed normal brain, no significant aneurysm or stenosis, and 0% stenosis of the proximal ICAs. CXR showed mild atelectasis at the left lung base. Review of Systems Review of Systems: All systems reviewed & are unremarkable except as noted in HPI and below PMFSH Past Medical History Medical History Dizziness H/O major depression Low back ache Muscle spasm of both lower legs Parkinson's Disease Surgical History Surgical History H/O cervical discectomy H/O knee surgery Traumatic fracture L knee 1968 S/P shoulder replacement Family History Family History Mother Diabetes mellitus Depression Cerebrovascular accident Glaucoma Melanoma Father Cerebrovascular accident Heart disease Hyperlipidemia Sibling Hyperlipidemia Heart disease Depression Lung cancer Grandparent Diabetes mellitus Social History Social History Smoking status: Never smoker Second hand tobacco smoke exposure: No Alcohol intake: never Alcohol use details: rare Substance use: never Substance use type: does not use Do You Feel Safe in your Home?: Yes Lack of Transportation: No Lack of Food: Never True Current Housing: I Have Housing Concerned About Future Housing: No Difficulty Paying Gas/Electric Bills: No Difficulty Paying for Meds: No Currently Unemployed: No Education: High School Diploma/GED Difficulty w/ Childcare or Family Care: No Living arrangements: alone Occupation/Education: retired Gender identity (if verbalized by the patient): Male Sexual Orientation (if Verbalized by the Patient): Straight or Heterosexual Spiritual care concerns: No Agree to blood products: Yes Meds Home Medications and Allergies Home Medications Medication Instructions Recorded Confirmed Type entacapone 200 mg tablet 200 mg PO .five times daily 06/11/20 06/29/24 History mirtazapine 30 mg tablet 30 mg PO .qhs 06/11/20 06/29/24 History tizanidine 2 mg tablet 2 mg PO QPM 06/11/20 06/29/24 History carbidopa 25 mg-levodopa 100 mg See Rx Instructions .Route .COMPLEX 12/19/20 06/29/24 History tablet amantadine HCl 100 mg capsule 100 mg PO TID #30 caps 03/20/21 06/29/24 Rx carbidopa ER 50 mg-levodopa 200 mg 1 tablet PO QHS 10/17/21 06/29/24 History tablet,extended release fluoxetine
--- NOTE | 2024-06-29 15:58 | WPDNEURCNPN ---
Assessment and Plan Assessment and plan (1) TIA (transient ischemic attack): Code(s): G45.9 - Transient cerebral ischemic attack, unspecified Status: Acute (2) Parkinson's Disease: Code(s): G20 - Parkinson's disease Status: Acute Plan I reviewed the results of the investigations including CT scan of the brain and CT angiogram head and neck which did not show any significant abnormalities. Clinically I did not find any focal deficit. I will suggest to keep him on the her dual antiplatelets and statin for next 3 months and thereafter he can go down to single anti-platelet agent and of course statin if necessary. I shall go ahead and order the a lipid profile while we observe him for any further recurrence or extension of the symptoms. MRI of the brain is also recommended. Consult date: 06/29/24 Time Seen: 15:30 Reason for consult: Transient ischemic attack or stroke HPI: Alan Mejia is a 73 year old male with history of Parkinson disease for long time presented to the hospital with the sudden onset of left lower limb weakness which started at 9:45 p.m. while he was at work. The patient works in the [place] department at [employer]. He is fairly active individual. He follows of at [facility] with for his Parkinson disease. He never had any stroke in the past. No history of cardiac disease. No history of head trauma. No changes in awareness. He did not have any weakness in the arm. No difficulty speech or swallowing. When he came to the emergency room he has a weakness is still there but he scored 3 on NIH scale. The emergency room contacted stroke team at [place] was to advised to go ahead with the tPA however by the time they came back to talk to him the weakness has completely resolved. Has he did not receive the tPA. ER physician talked to me and we decided to go ahead admit him. A CT scan of brain and CT angiogram of the head and neck were performed which did not show any significant abnormalities. Patient does not smoke or drink any alcohol. His mother has stroke in the past. Review of Systems Review of Systems: All systems reviewed & are unremarkable except as noted in HPI and below PMFSH Past Medical History Medical History Dizziness H/O major depression Low back ache Muscle spasm of both lower legs Parkinson's Disease Surgical History Surgical History H/O cervical discectomy H/O knee surgery Traumatic fracture L knee 1968 S/P shoulder replacement Family History Family History Mother Diabetes mellitus Depression Cerebrovascular accident Glaucoma Melanoma Father Cerebrovascular accident Heart disease Hyperlipidemia Sibling Hyperlipidemia Heart disease Depression Lung cancer Grandparent Diabetes mellitus Social History Social History Smoking status: Never smoker Second hand tobacco smoke exposure: No Alcohol intake: never Alcohol use details: rare Substance use: never Substance use type: does not use Do You Feel Safe in your Home?: Yes Lack of Transportation: No Lack of Food: Never True Current Housing: I Have Housing Concerned About Future Housing: No Difficulty Paying Gas/Electric Bills: No Difficulty Paying for Meds: No Currently Unemployed: No Education: High School Diploma/GED Difficulty w/ Childcare or Family Care: No Living arrangements: alone Occupation/Education: retired Gender identity (if verbalized by the patient): Male Sexual Orientation (if Verbalized by the Patient): Straight or Heterosexual Spiritual care concerns: No Agree to blood products: Yes Meds Home Medications and Allergies Home Medications Medication Instructions
[2024-06-29 16:34] LABS: Cholesterol 214 mg/dL (0-200); HDL Direct 38 mg/dL; Triglycerides 158 mg/dL (<150)
[2024-06-29 16:46] LABS: LDL Cholesterol Direct 125 mg/dL
[2024-06-29] MEDS: CARBIDOPA/LEVODOPA 25/100 MG TABLET 3 TABLET PO ×2 (19:17→21:48)
[2024-06-29] MEDS: ENTACAPONE 200 MG TABLET PO ×2 (19:17→21:53)
[2024-06-29] MEDS: TIZANIDINE HCL 2 MG TABLET PO (21:48)
[2024-06-29] MEDS: AMANTADINE HCL 100 MG CAPSULE PO (21:48)
[2024-06-29] MEDS: CARBIDOPA/LEVODOPA 25/100 MG CR TABLET 1 TABLET PO (21:48)
[2024-06-29] MEDS: MIRTAZAPINE 30 MG TABLET PO (21:48)
[2024-06-30] VITALS: PULSE 49
--- NOTE | 2024-06-30 00:55 | PCNSR ---
On 06/29/24 & 06/30/24, Mignon Pitts RN completing orientation, provided care and completed [employer] documentation on this patient. I have reviewed Mignon's documentation and agree with the findings.
[2024-06-30 04:00] VITALS: PULSE 48
[2024-06-30 04:43] LABS: Basophils Absolute Auto 0.1 K/mm3 (0.0-0.1); Basophils Percent Auto 0.9 % (0.2-1.2); Eosinophils Absolute Auto 0.2 K/mm3 (0-0.3); Eosinophils Percent Auto 3.3 % (0-4.4); Hematocrit 45.1 % (42.0-52.0); Hemoglobin 15.1 g/dL (14.0-18.0); Immature Granulocyte Absolute 0.03 K/mm3 (0.00-0.031); Immature Granulocyte Percent A 0.6 % (0-0.5); Lymphocytes Absolute Auto 1.56 K/mm3 (0.9-3.2); Lymphocytes Percent Auto 28.8 % (18.3-44.2); Mean Corpuscular HGB Conc 33.5 g/dl (32-36); Mean Corpuscular Hemoglobin 33.5 pg (26-34); Mean Platelet Volume 9.5 fl (7.4-10.4); Monocytes Absolute Auto 0.8 K/mm3 (0.1-0.6); Monocytes Percent Auto 14.4 % (2.6-8.5); Neutrophils Absolute Auto 2.8 K/mm3 (1.3-6.7); Platelet Count Result 254 k/mm3 (150-375); Red Blood Count 4.51 M/mm3 (4.6-6.20); Red Cell Distribution Width 11.8 % (11.5-14.5); White Blood Count 5.4 K/mm3 (4.5-10.0)
[2024-06-30 04:52] LABS: Alanine Aminotransferase 7 U/L (6-50); Albumin Level 4.3 g/dL (3.5-5.1); Alkaline Phosphatase 136 U/L (38-126); Anion Gap 9 mmol/L (4-12); Aspartate Amino Transferase 22 U/L (17-59); Bilirubin,Total 1.3 mg/dL (0.2-1.3); Blood Urea Nitrogen 22 mg/dL (9-20); Calcium 8.9 mg/dL (8.4-10.2); Carbon Dioxide 25 mmol/L (22-30); Chloride 104 mmol/L (98-107); Cholesterol 204 mg/dL (0-200); Estimated CRCL calculation 65 ml/min; Estimated Glomerular Filt Rate > 60; Glucose 85 mg/dL (65-110); HDL Direct 33 mg/dL; Potassium 3.7 mmol/L (3.4-5.0); Sodium 138 mmol/L (137-145); Triglycerides 162 mg/dL (<150)
[2024-06-30 05:03] LABS: LDL Cholesterol Direct 118 mg/dL
[2024-06-30 05:14] LABS: Hemoglobin A1C 5.2 % (<5.7)
[2024-06-30 05:25] VITALS: BP 124/82; PULSE 54; RESP 16; TEMP 36.3; O2SAT 98
[2024-06-30] MEDS: AMANTADINE HCL 100 MG CAPSULE PO (05:51)
[2024-06-30] MEDS: CARBIDOPA/LEVODOPA 25/100 MG TABLET 3 TABLET PO ×2 (05:51→09:58)
[2024-06-30] MEDS: ENTACAPONE 200 MG TABLET PO ×2 (05:51→09:58)
[2024-06-30 08:00] VITALS: PULSE 53
[2024-06-30] MEDS: VITAMIN B COMPLEX CAPSULE 1 CAP PO (09:58)
[2024-06-30] MEDS: ATORVASTATIN 40 MG TABLET PO (09:59)
[2024-06-30] MEDS: MULTIVITAMINS THERAPEUTIC TAB (*BKC) 1 TABLET PO (09:59)
[2024-06-30] MEDS: ASCORBIC ACID 250 MG TABLET PO (09:59)
[2024-06-30] MEDS: CLOPIDOGREL BISULFATE 75 MG TABLET PO (09:59)
[2024-06-30] MEDS: FLUoxetine HCL 20 MG CAPSULE 40 MG PO (09:59)
[2024-06-30] MEDS: ASPIRIN 81 MG ENTERIC TABLET PO (09:59)
[2024-06-30] MEDS: OMEGA 3 POLYUNSAT FATTY ACIDS 1 GM CAP 2 GM PO (10:00)
--- NOTE | 2024-06-30 10:00 | PM.DS ---
DS: Admitting Diagnosis Discharge Date 06/30/24 Admitting Diagnosis Left leg weakness DS: Discharge Diagnosis Discharge Diagnosis (1) TIA (transient ischemic attack): Code(s): G45.9 - Transient cerebral ischemic attack, unspecified Status: Acute (2) Parkinson's Disease: Code(s): G20 - Parkinson's disease Status: Acute DS: Summary Hospital Course Reason for hospitalization: 73yo male with Parkinson's here for acute onset of left leg weakness. Please see H&P for details. Hospital Course: Patient presents with left leg weakness after sitting on a stool at work. Symptom onset was 945 a.m. He had associated numbness that started at the hip and extended to his foot. Denies accompanying facial droop, dysarthria, upper extremity weakness, vision changes, or additional areas of focal numbness. Spontaneously resolved at 11:25 a.m. In the ED, vital signs were stable. CBC, PT/PTT and CMP were normal except for sodium 135, BUN 25 and alk phos 131. Troponin x1 negative. UA clear. Head CT showed no acute intracranial findings. CTA of the head and neck showed normal brain, no significant aneurysm or stenosis, and 0% stenosis of the proximal ICAs. EKG showing sinus bradycardia wnt LAD and nonspecific T wave changes. CXR showed mild atelectasis at the left lung base. He was started on aspirin and admitted to telemetry unit. Neurology consulted. TG 158, TC 214, LDL 125 and HDL 38. Lipitor and Plavix added. Brain MRI showing normal brain. Echo performed and results are pending. Patient did not have any recurrence of symptoms. He did not require therapy. Tele showed bradycardia worse at night. He has a hx of VERONICA but lost weight which helped. He was encouraged to talk with his doctor about having a repeat sleep study. He overall did well and was able to be discharged home on 06/30/24. Status at Discharge Cognitive/behavioral status at discharge: stable Time Spent with Patient Time attestation: Total time spent providing and/or coordinating discharge services: 35 mintues Time spent: Greater than 30 minutes Exam Narrative: AF 97.4 124/82 54 16 98% ra Gen - NARD sitting up in chair Chest - CTA bilaterally, nml RR CV - RRR S1/S2. Tele showing bradycardia into the high 40's at times Abd - Soft, NT/ND, Positive BS Ext - No pedal edema Neuro - Alert and appropriate. No focal weakness. Walked to the BR without assistance. Shuffling gait Psych - Nml mood and affect Skin - Warm and dry DS: Data Data Completed and Pending Labs on day of discharge: Labs from last 24 hours 06/30/24 06/29/24 06/29/24 04:13 16:13 11:22 WBC 5.4 RBC 4.51 L Hgb 15.1 Hct 45.1 MCV 100.0 MCH 33.5 MCHC 33.5 RDW 11.8 Plt Count 254 MPV 9.5 Immature Gran % (Auto) 0.6 H Neut % (Auto) 52.0 Lymph % (Auto) 28.8 Creek % (Auto) 14.4 H Eos % (Auto) 3.3 Baso % (Auto) 0.9 Lymph # (Auto) 1.56 [place] # (Auto) 0.8 H Eos # (Auto) 0.2 Baso # (Auto) 0.1 Abs Immat Gran (auto) 0.03 Absolute Neuts (auto) 2.8 Absolute Nucleated RBC 0.000 Nucleated RBC % 0.0 PT INR APTT Sodium 138 Potassium 3.7 Chloride 104 Carbon Dioxide 25 Anion Gap 9 BUN 22 H Creatinine 0.90 Estim Creat Clear Calc 65 Estimated GFR > 60 Glucose 85 POC Capillary Glucose Hemoglobin A1c 5.2 Calcium 8.9 Total Bilirubin 1.3 AST 22 ALT 7 Alkaline Phosphatase 136 H Troponin I Total Protein 7.0 Albumin 4.3 Triglycerides 162 H 158 H Cholesterol 204 H 214 H LDL Cholesterol Direct 118 125 HDL Direct 33 38 Urine Color Yellow Urine Appearance Clear Urine pH 6.0 Ur Specific [place] 1.020 Urine Protein Negative Urine Glucose (UA) Negative Urine Ketones Negative Ur Blood (Man) Negative Urine Nitrate Negative Urine Bilirubin Negative Urine Urobilinogen 0.2 Leukocyte Esterase Rfl N
[2024-06-30] MEDS: PERFLUTREN LIPID MICROSPHERES 1.5 ML VIAL DILUTED TO 10 ML TOTAL VOLUME IV PUSH (10:52)
--- NOTE | 2024-06-30 11:18 | IVDEFINITY ---
Prior to administration of IV Definity the patient was educated on the risks and benefits of the imaging enhancing agent including potential adverse side effects. The patient verbalized understanding. Allergies were verified. No exclusion criteria were identified and at least one of the following inclusion criteria were met: 1) physician request, 2) patient technically difficult to image (per the [place] [employer] guidelines of two or more segments not discernable within the apical view), or 3) questionable left ventricular function. ?
--- NOTE | 2024-06-30 14:24 | ECHO_ITS ---
Patient Info Name: Alan Mejia Age: 73 years : 1950 Gender: Male Ht: 69 in Wt: 173 lbs BSA: 1.96 m2 HR: 54 bpm BP: 124 / 82 mmHg Heart Rhythm: Sinus Rhythm Technical Quality: Fair Exam Date: 06/30/2024 10:11 AM Exam Location: Echo Lab Patient Status: Outpatient Admit Date: 06/29/2024 Staff Ordering Physician: Nyla Banks APRN Consumer Services Consultant: Dayami Rodriguez RDCS Attending Provider: Timothy Moreno MD Referring Physician: Jocelyn COLUNGA; Exam Type: CA echo dop bubble study w con Study Info Indications - TIA Complete two-dimentional, color flow and Doppler transthoracic echocardiogram is performed with agitated saline and with contrast to opacify the left ventricle and to improve the delineation of the left ventricle endocardial borders. Contrast/Agitated Saline Contrast/Ag. Saline: Definity Amount: 2.00 ml Administered By: Dayami Rodriguez RDCS Existing IV Access: Yes IV Access Condition: patent with no signs of infiltration Contrast/Ag. Saline: Agitated Saline Amount: 20.00 ml Administered By: Lashanda Fatima RDCS Existing IV Access: Yes IV Access Condition: patent with no signs of infiltration Summary 1. Definity contrast used to improve visualization. 2. Normal left ventricular size and systolic function with grade 1 diastolic noncompliance. 3. No significant valve dysfunction. 4. Saline contrast injection is mildly positive consistent with patent foramen ovale. Left Ventricle Left ventricular chamber dimension is normal. Left ventricular systolic function is normal, estimated at 55-60%. The left ventricular diastolic function is grade I diastolic dysfunction. Right Ventricle Right ventricular chamber dimension is normal. Left Atria Left atrial chamber dimension is mildly enlarged. Right Atria Right atrial chamber dimension is normal. Atrial Septum Suspected patent foramen ovale visualized by agitated saline imaging. Aortic Valve The aortic valve is normal. Pulmonic Valve The pulmonic valve is normal. Mitral Valve The mitral valve has normal leaflets. The mitral valve annulus is mildly calcified. Tricuspid Valve The tricuspid valve leaflets are normal. Pericardium/Pleural The pericardium appears normal. Aorta The aortic root size at the sinus of Valsalva is normal. Left Ventricular Outflow Tract Name Value Normal LVOT 2D LVOT Diameter 2.5 cm LVOT Doppler LVOT Peak Gradient 2 mmHg LVOT Mean Gradient 1 mmHg LVOT VTI 14 cm LVOT VTI/AV VTI Ratio 0.8 LVOT Stroke Volume 70 ml LVOT CO 3.6 l/min LVOT CI 1.8 l/min/m2 Pulmonic Valve Name Value Normal RVOT Doppler RVOT Peak Gradient 1 m
== END 2024-06-30 11:50 | disposition home or self-care (01) ==
LOC: ANHED 13:03 → ANH2MED 13:57
PROVIDERS: Psychiatry & Neurology Neurology; Student in an Organized Health Care Education/Training Program; Admitting Provider Internal Medicine; Emergency Provider Physician Assistant; PCP Family Medicine; Visit Provider Internal Medicine
DX: G45.9 Transient cerebral ischemic attack, unspecified (principal); R53.1 Weakness; G20.A1 Parkinson's disease without dyskinesia, without mention of fluctuations; F32.A Depression, unspecified; Z79.899 Other long term (current) drug therapy
CPT/HCPCS: 36415; 70450; 70496; 70498; 70553; 71045; 80053; 80061; 81003; 82948; 83036; 84484; 85025; 85610; 85730; 93005; 96375; 99285; A9270; A9577; C8929; G0378; Q9957; Q9967

== ENCOUNTER 2024-11-03 10:28 | Emergency (ER) | payer MEDICARE, SELFPAY ==
--- NOTE | ~2024-11-03 | CT_ITS ---
EXAMINATION: CT lumbar spine wo con DATE: 11/03/2024 11:43 INDICATION: Right sacroiliac pain. Right lower limb pain. TECHNIQUE: Computed tomography (CT) of the lumbar spine was performed without intravenous contrast. A utomated exposure control and iterative reconstruction technique were employed. The dose-length produ ct was 563.92 mGy-cm. COMPARISON: CT lumbar spine 02/22/2024 FINDINGS: There is a 14 mm cyst in left kidney. There is 21 degrees levoscoliosis of lumbar spine. Th ere is 3 mm anterolisthesis of T11 and T12 and 5 mm retrolisthesis of L1 on L2 and L2 on L3. There is mild chronic anterior wedging of T12 vertebral body. There is severely decreased disc height at T10- T11, moderately decreased disc height at T11-T12, and severely decreased disc height from L1-L2 throu gh L5-S1. 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 The fo llowing disc levels are specifically discussed: L1-L2: The disc is bulging. There is mild bilateral facet joint osteoarthritis. There is moderate rig ht and mild left neural foraminal stenosis. There is mild central canal stenosis. L2-L3: The disc is bulging. There is severe right and mild left facet joint osteoarthritis. There is moderate right and mild left neural foraminal stenosis. There is mild central canal stenosis. L3-L4: The disc is bulging. There is severe bilateral facet joint osteoarthritis. There is mild bilat eral neural foraminal stenosis. There is mild central canal stenosis. L4-L5: The disc is bulging. There is moderate right and severe left facet joint osteoarthritis. There is moderate bilateral neural foraminal stenosis. There is mild central canal stenosis. L5-S1: The disc is bulging. There is severe bilateral facet joint osteoarthritis. There is mild right and moderate left neural foraminal stenosis. There is mild central canal stenosis. IMPRESSION: 1. Severe lumbar spondylosis, stable from 02/22/2024. 2. Lumbar levoscoliosis. Reviewed, dictated and finalized at location A. [facility]
[2024-11-03 10:29] VITALS: BP 126/91; PULSE 75; RESP 16; TEMP 36.5; O2SAT 97
[2024-11-03 10:45] VITALS: BP 147/78; PULSE 72; RESP 18; O2SAT 96
[2024-11-03 10:47] VITALS: BP 126/72; PULSE 80; RESP 18; O2SAT 94
--- NOTE | 2024-11-03 11:39 | ED.BACK ---
HPI - Back Pain/Injury General Chief Complaint: Back Pain/Injury Stated Complaint: back pain Time Seen by Provider: 11/03/24 11:11 Source: patient Mode of arrival: ambulatory Limitations: no limitations History of Present Illness HPI Narrative: Patient is a 73-year-old male, with PMH of Parkinson's Disease, who presents the ED with report of right lower back pain. Patient reports having pain for at least the last year, worsening over the last few months. He states he typically walks to and from work and was on able to walk to work today due to the pain. Has not taken anything for pain today. No recent fall or injury. States pain is present in right lower back and radiates down his leg. Reports intermittent tingling in his legs for the past few months. Denies saddle anesthesia, bowel or bladder incontinence, abdominal pain, dysuria, hematuria. Related Data Home Medications Medication Instructions Recorded Confirmed entacapone 200 mg tablet 200 mg PO .five times daily 06/11/20 07/13/24 mirtazapine 30 mg tablet 30 mg PO .qhs 06/11/20 07/13/24 tizanidine 2 mg tablet 2 mg PO QPM 06/11/20 07/13/24 carbidopa 25 mg-levodopa 100 mg See Rx Instructions .Route .COMPLEX 12/19/20 07/13/24 tablet carbidopa ER 50 mg-levodopa 200 mg 1 tablet PO QHS 10/17/21 07/13/24 tablet,extended release fluoxetine 20 mg capsule 40 mg PO DAILY 04/06/22 07/13/24 multivitamin 1 tablet PO DAILY 07/02/22 07/13/24 omega 2-ryc-xzl-fish oil 1,200 mg 2 cap PO DAILY 09/11/22 07/13/24 (144 mg-216 mg) capsule (Fish Oil) polyethylene glycol 3350 17 17 g PO DAILY 09/11/22 07/13/24 gram/dose oral powder (Miralax) vitamin B complex (B 1 tablet PO DAILY 09/11/22 07/13/24 Complex-Vitamin B12 tablet) vitamin E 30 unit capsule 3 unit PO DAILY 09/11/22 07/13/24 ascorbic acid (vitamin C) 250 mg 250 mg PO DAILY 06/29/24 07/13/24 chewable tablet Allergies Allergy/AdvReac Type Severity Reaction Status Date / Time No Known Allergies Allergy Verified 11/03/24 10:29 Review of Systems Review of Systems: All systems reviewed & are unremarkable except as noted in HPI. All systems reviewed & are unremarkable except as noted in HPI and below [facility] Past Medical History Medical History Dizziness H/O major depression Low back ache Muscle spasm of both lower legs Parkinson's Disease Surgical History Surgical History H/O cervical discectomy H/O knee surgery Traumatic fracture L knee 1968 S/P shoulder replacement Family History Family History Mother Diabetes mellitus Depression Cerebrovascular accident Glaucoma Melanoma Father Cerebrovascular accident Heart disease Hyperlipidemia Sibling Hyperlipidemia Heart disease Depression Lung cancer Grandparent Diabetes mellitus Social History Social History Smoking status: Never smoker Second hand tobacco smoke exposure: No Alcohol intake: never Alcohol use details: rare Substance use: never Substance use type: does not use Do You Feel Safe in your Home?: Yes Lack of Transportation: No Lack of Food: Never True Current Housing: I Have Housing Concerned About Future Housing: No Difficulty Paying Gas/Electric Bills: No Difficulty Paying for Meds: No Currently Unemployed: No Education: High School Diploma/GED Difficulty w/ Childcare or Family Care: No Living arrangements: alone Occupation/Education: retired Gender identity (if verbalized by the patient): Male Sexual Orientation (if Verbalized by the Patient): Straight or Heterosexual Spiritual care concerns: No Agree to blood products: Yes Exam Narrative: GENERAL: Elderly, mildly unkempt, non-toxic, in no acute distress. HEAD: Normocephalic, atraumatic. RESPIRATORY: Airway patent, respirations nonlabored. Clear to auscultation bilaterally, no rales, rhonchi, wheezing. CARDIOVASCULAR: Regular rate and rhythm. ABDOMINAL: Soft, nontender, nondistended. Normoactive BS. MUSCULOSKELETAL: Moves all extremities. No gross deformities. Positive straight leg raise on right. TTP over R SI region reproducing pain. No significant lumbar midline spinal tenderness. SKIN: Warm, dry, normal color. NEURO: A&O X3. Speech clear. Cranial nerves II-XII grossly intact. Steady gait. No ataxic movements. No focal deficits. PSYCHIATRIC: Appropriate mood and affect. Normal interaction. Course Vital Signs Vital signs: Vital Signs Temperature 97.7 F 11/03/24 10:29 Pulse Rate 75 11/03/24 10:29 Respiratory Rate 16 11/03/24 10:29 Blood Pressure 126/91 H 11/03/24 10:29 Pulse Oximetry 97 11/03/24 10:29 Oxygen Delivery Room Air 11/03/24 10:29 Temperature 97.7 F 11/03/24 10:29 Pulse Rate 87 11/03/24 12:32 Respiratory Rate 20 11/03/24 12:32 Blood Pressure 121/77 11/03/24 12:32 Pulse Oximetry 97 11/03/24 12:32 Oxygen Delivery Room Air 11/03/24 10:29 MDM - Back Pain/Injury MDM Narrative Medical decision making narrative: Patient's pain is positional and localized to paraspinal muscles without signs of cord compression or cauda equina. Normal neurologic exams. No red flag symptoms. No fever noted and no significant risk factors for osteomyelitis or spinal epidural abscess. No symptoms or signs to suggest pain is referred from abdominal or source. CT lumbar spine was obtained and showing severe spondylosis changes, stable from January of this year. No marked central canal stenosis noted. No acute osseous abnormality. Patient ambulates with a steady gait and is felt to be a reasonable candidate for continued outpatient management. He is feeling better with supportive therapy. Will discharge on short steroid pack as patient unable to take anti-inflammatories due to being on Plavix. Will also prescribe a few muscle relaxers for home use. Will refer to neurosurgery for further evaluation. Given strict return precautions. Patient in agreement with plan and feels comfortable w/ discharge home. Discharged in stable condition. Medical Records Attestation: I reviewed the patient's medical records. Imaging Data Attestation: I personally reviewed and interpreted this imaging study as follows: Radiologist's impression: ITS Impressions Lumbar Spine CT 11/03/24 12:31 IMPRESSION: 1. Severe lumbar spondylosis, stable from 02/22/2024. 2. Lumbar levoscoliosis. Discharge Plan Discharge Clinical Impression: Lumbar radiculopathy Strain of lumbar region Qualifiers: Encounter type: initial encounter Qualified Code(s): S39.012A - Strain of muscle, fascia and tendon of lower back, initial encounter Patient Disposition: Home, Self-Care Condition: Stable Instructions: Antibiotic Form, Sciatica (ED), Acute Low Back Pain (ED), Lumbar Radiculopathy (ED), Lower Back Exercises (ED) Additional Instructions: Take steroid pack as prescribed over next few days to decrease inflammation. Continue Tylenol as needed for pain. You may use ice/heat, lidocaine patches to area of pain. Take muscle relaxers as needed and prescribed. Recommend taking these at night as they may cause sedation. Do not drive, operate heavy machinery, drink alcohol while on muscle relaxers as this may cause further sedation. Follow-up with your primary care doctor for further evaluation. Also recommend follow up with Neurosurgery for further evaluation. Call office to make appointment. Return to the ED if you experience worsening or severe pain, recurrent injury, persistent numbness in groin or legs, going to the bathroom without meaning to, unable to keep down food or drink, or any other symptoms of concern. Prescriptions: New lidocaine 5 % adhesive patch,medicated 1 patch topical DAILY Qty: 15 0RF Rx Instructions: leave on most painful area for up to 12 hrs cyclobenzaprine 5 mg tablet 5 mg PO TID PRN (Reason: muscle spasm) Qty: 15 0RF methylprednisolone [Medrol (Marcos)] 4 mg tablets,dose pack See Rx Instructions PO .COMPLEX Qty: 21 0RF Rx Instructions: orally per package directions No Action entacapone 200 mg tablet 200 mg PO .five times daily Rx Instructions: administer at the same time as l-dopa/carbidopa dose mirtazapine 30 mg tablet 30 mg PO .qhs tizanidine 2 mg tablet 2 mg PO QPM carbidopa-levodopa 25-100 mg tablet See Rx Instructions .ROUTE .COMPLEX Rx Instructions: 3 tablet orally q 4 hours starting at 0600 (15 tabs daily) carbidopa-levodopa 50-200 mg tablet extended release 1 tablet PO QHS fluoxetine 20 mg capsule 40 mg PO DAILY multivitamin Tablet 1 tablet PO DAILY amantadine HCl 100 mg capsule 100 mg PO TID Qty: 30 0RF ascorbic acid (vitamin C) 250 mg Tablet,Chewable 250 mg PO DAILY aspirin 81 mg Tablet,Delayed Release (Dr/Ec) 81 mg PO QAM Qty: 30 1RF atorvastatin 40 mg tablet 40 mg PO DAILY Qty: 30 6RF clopidogrel 75 mg tablet 75 mg PO QAM Qty: 30 6RF vitamin B complex [B Complex-Vitamin B12] Tablet 1 tablet PO DAILY polyethylene glycol 3350 [Miralax] 17 gram/dose Powder 17 g PO DAILY vitamin E 30 unit Capsule 3 unit PO DAILY omega 9-fpk-rab-fish oil [Fish Oil] 1,200 (144-216) mg Capsule 2 cap PO DAILY Follow-up/Referrals: Ashli Montgomery MD [Primary Care Provider] - Joshua Burr MD [Physician] - (NEUROSURGERY) Time of Disposition: 12:46
[2024-11-03 11:48] VITALS: BP 123/79; PULSE 85; RESP 18; O2SAT 96
[2024-11-03] MEDS: ACETAMINOPHEN 500 MG TABLET 1000 MG PO (12:06)
[2024-11-03] MEDS: CYCLOBENZAPRINE HCL 5 MG TABLET PO (12:07)
[2024-11-03] MEDS: LIDOCAINE 5% PATCH 1 PATCH TRANSDERM (12:07)
[2024-11-03] MEDS: methylPREDNISolone SOD SUCC 125 MG VIAL IM (12:07)
[2024-11-03 12:32] VITALS: BP 121/77; PULSE 87; RESP 20; O2SAT 97
== END 2024-11-03 13:15 | disposition home or self-care (01) ==
PROVIDERS: Emergency Provider Physician Assistant; PCP Family Medicine
DX: S39.012A Strain of muscle, fascia and tendon of lower back, initial encounter (principal); M54.16 Radiculopathy, lumbar region; G20.A1 Parkinson's disease without dyskinesia, without mention of fluctuations
CPT/HCPCS: 72131; 96372; 99284; A9270; J2919

== ENCOUNTER 2025-11-13 10:52 | Outpatient (CLI) | payer MEDICARE, SELFPAY ==
--- OUTSIDE RECORDS SUMMARY | 2025-04-12 10:30 | XMS_ITS ---
Author Organization [facility] [place] [facility] Address [address] [place] [address] Care Team Providers Care Assurance Senior Name Role Phone Ashli Montgomery MD Primary Care Provider Hyun Rehman Unavailable [phone] Flakito Guidry Unavailable [phone] REASON FOR VISIT Scheduled for the next day Medications Medication SIG (Take, Route, Frequency, Duration) Notes Start Date End Date Status methylPREDNISolone 4 MG Tablet Therapy Pack Oral; Duration: 6 Days Not-Taking Carbidopa-Levodopa 25-100 MG Tablet Oral; Duration: 84 Days Not-Taking Amantadine HCl 100 MG Capsule Oral; Duration: 90 Days Not-Taking Cyclobenzaprine HCl 5 MG Tablet Oral; Duration: 5 Days Not-Taking tiZANidine HCl 2 MG Tablet Oral; Duratio n: 90 Days Not-Taking Atorvastatin Calcium 40 MG Tablet Oral; Duration: 30 Days Not-Taking Clopidogrel Bisulfate 75 MG Tablet Oral; Duration: 30 Days Not-Taking Carbidopa-Levodopa ER 50-200 MG Tablet Extended Release Oral; Duration: 90 Days Not-Taking FLUoxetine HCl 40 MG Capsule Oral; Durat ion: 90 Days Not-Taking Mirtazapine 30 MG Tablet Oral; Duration: 90 Days Not-Taking Entacapone 200 MG Tablet Oral; Duration: 30 Days Not-Taking FLUoxetine HCl 20 MG Capsule Oral; Durat ion: 30 Days Not-Taking Social History Tobacco Use: Social History Observation Description Date Details (start date - stop date) Never Smoker NA - NA Sex Assigned At : Social History Observation Description Sex Assigned At Male Social History Social History Social Info Question Answer Notes Household: Marital Status: Single Drug/Alcohol: Social Info Question Answer Notes Alcohol Screen (Audit-C) Did you have a drink containing alcohol in the past year? Yes How often did you have 6 or more drinks on one occasion in the past year? Never (0 point) How many drinks did you have on a typical day when you were drinking in the past year? 1 or 2 drinks (0 point) How often did you have a drink containing alcohol in the past year? Monthly or less (1 point) Drugs Have you used drugs other than those for medical reasons in the past 12 months? 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 [employer] Vital Signs Blood pressure systolic 115 mm Hg 04/12/20 25 Blood pressure diastolic 68 mm Hg 025 Heart Rate 66 /min 04/12/2025 Height 69 in 04/12/2025 Weight 169.8 lbs 04/12/2025 BMI 25.07 kg/m2 04/12/2025 Height-cm 175.26 cm 04/12/2025 Weight-kg 77.02 kg 04/12/2025 Encounters Encounter Location Date Provider Diagnosis [facility], [address] [address] 04/12/2025 Flakito [place] Encounter for screen ing for depression Z13.31 and Encounter for screening for cardiovascular disorders Z13.6 Assessments Encounter Date Diagnosis (ICD Code) Assessment Notes Treatment Notes Treatment Clinical Notes Section Notes 04/12/2025 Encounter for screening for depression (ICD-10 - Z13.31) 04/12/2025 Encounter for screening for cardiovascular disorders (ICD-10 - Z13.6) Plan Of Treatment Pending Test Test Name Order Date UDT 04/12/2025 History and Physical Notes * HPI (History of Present Illness) Category Sub-Category Detail Notes Category Not es History of Presenting Problem Depression screening done Pt was seen today and Urine drug screen was done Depression screening PHQ-9 Little inte rest or pleasure in doing things: More than half the days Feeling down, depressed, or hopeless: Mo re than half the days Trouble falling or staying a sleep, or sleeping too much: More than half the days Feeling tired or having little energy: S everal days Poor appetite or overeating: Several day s Feeling bad about yourself o r that you are a failure, or have let yourself or your family down: Several days Trouble concentrating on thi ngs, such as reading the newspaper or watching television: More than half the days Moving or speaking so slowly that other people could have noticed; or the opposite, being so fidgety or restless that you have been moving around a lot more than usual: More than half the days Thoughts that you would be b gar[place] off or of hurting yourself in some way: Not at all Intervention Depression Screening Findings: P ositve Follow-Up for Depression: [facility] health care management, Psychiatric follow-up Suicide Risk Assessment Performed: __ da te Montesinos Depression Inventory which describe s you best in terms of this past week 1 In the past one week which term best describe you: 0 I do not feel sad or blue. 2 In the past one week which term best describe you: 2 I feel I have nothing to look forward to. 3 In the past one week which term best describe you: 1 I feel I have failed more than the average person. 4 In the past one week which term best describe you: 2 I don't get real satisfaction out of anything anymore 5 In the past one week which term best describe you: 1 I feel guilty a good part of the time. 6 In the past one week which term best describe you: 1 I feel I may be punished. 7 In the past one week which term best describe you: 2 I am disgusted with myself 8 In the past one week which term best describe you: 1 I am critical of myself for my weakness or mistakes. 9 In the past one week which term best describe you: 0 I don't have any thoughts of killing myself. 10 In the past one week whic h term best describe you: 1 I cry more now man I used to . 11 In the past one week whic h term best describe you: 1 I am slightly more irritated now than usual. 12 In the past one week whic h term best describe you: 1 I am less interested in other people than I used to be. 13 In the past one week whic h term best describe you: 1 I put off making decisions more than I used to. 14 In the past one week whic h term best describe you: 0 I don't feel that I look any worse than I used to. 15 In the past one week whic h term best describe you: 1 It takes an extra effort to get started at doing something. 16 In the past one week whic h term best describe you: 0 I can sleep as well as usual. 17 In the past one week whic h term best describe you: 1 I get tired more easily than I used to. 18 In the past one week whic h term best describe you: 1 My appetite is not as good as It used to be. 19 In the past one week whic h term best describe you: 0 I haven't lost much weight, if any, lately. 20 In the past one week whic h term best describe you: 2 I am very worried about physical problems and it's hard to think of much else. 21 In the past one week whic h term best describe you: 0 I have not noticed any recent changes in my interest in sex. TIMO-7 Anxiety Over the last two we eks, how often have you been bothered by the following problems? 1. Feeling nervous, anxious, or on edge: 1 Several days 2. Not being able to stop or control wor ryin Several days 3. Worrying too much about different thi ngs: 1 Several days 4. Trouble relaxin More than half th e days 5. Being so restless that it is hard to sit still: 2 More than half the days 6. Becoming easily annoyed or irritable: 1 Several days 7. Feeling afraid, as if something awful might happen: 1 Several days Progress Notes * Alan MEJIA TDOB:1950 (74 yo M)Acc No.[id number]:04/12/2025 Patient: Alan Jacobson Provider: JAZMÍN Salter :1950 A ge:74 Y S ex:Male Date:04/12/2025 Address:[address] [place] [address], [facility] Pcp:Ashli Montgomery MD Subjective: * Chief Complaints: * S cheduled for the next day * HPI: G AD-7 Anxiety: Over the last two weeks, how often have you been bothered by the following problems? 1 . Feeling nervous, anxious, or on edge 1 Several days 2 . Not being able to stop or control worrying?1 Several days 3 . Worrying too much about different things?1 Several days 4 . Trouble relaxing 2 More than half the days 5 . Being so restless that it is hard to sit still 2 More than half the days 6 . Becoming easily annoyed or irritable 1 Several days 7 . Feeling afraid, as if something awful might happen 1 Several days B jose Depression Inventory: which describes you best in terms of this past week 1 In the past one week which term best describe you 0 I do not feel sad or blue. 2 In the past one week which term best describe you 2 I feel I have nothing to look forward to. 3 In the past one week which term best describe you 1 I feel I have failed more than the average person. 4 In the past one week which term best describe you 2 I don't get real satisfaction out of anything anymore 5 In the past one week which term best describe you 1 I feel guilty a good part of the time. 6 In the past one week which term best describe you 1 I feel I may be punished. 7 In the past one week which term best describe you 2 I am disgusted with myself 8 In the past one week which term best describe you 1 I am critical of myself for my weakness or mistakes. 9 In the past one week which term best describe you 0 I don't have any thoughts of killing myself. 1 0 In the past one week which term best describe you 1 I cry more now man I used to . 1 1 In the past one week which term best describe you 1 I am slightly more irritated now than usual. 1 2 In the past one week which term best describe you 1 I am less interested in other people than I used to be. 1 3 In the past one week which term best describe you 1 I put off making decisions more than I used to. 1 4 In the past one week which term best describe you 0 I don't feel that I look any worse than I used to. 1 5 In the past one week which term best describe you 1 It takes an extra effort to get started at doing something. 1 6 In the past one week which term best describe you 0 I can sleep as well as usual. 1 7 In the past one week which term best describe you 1 I get tired more easily than I used to. 1 8 In the past one week which term best describe you 1 My appetite is not as good as It used to be. 1 9 In the past one week which term best describe you 0 I haven't lost much weight, if any, lately. 2 0 In the past one week which term best describe you 2 I am very worried about physical problems and it's hard to think of much else. 2 1 In the past one week which term best describe you 0 I have not noticed any recent changes in my interest in sex. D epression screening: PHQ-9 L ittle interest or pleasure in doing things?More than half the days F eeling down, depressed, or hopeless M ore than half the days T rouble falling or staying asleep, or sleeping too much M ore than half the days F eeling tired or having little energy S everal days P oor appetite or overeating S everal days F eeling bad about yourself or that you are a failure, or have let yourself or your family down S everal days T rouble concentrating on things, such as reading the newspaper or watching television M ore than half the days M oving or speaking so slowly that other people could have noticed; or the opposite, being so fidgety or restless that you have been moving around a lot more than usual M ore than half the days T houghts that you would be better off or of hurting yourself in some way N ot at all Intervention D epression Screening Findings P ositve F ollow-Up for Depression M ental health care management, Psychiatric follow-up S uicide Risk Assessment Performed _ _ date H istory of Presenting Problem: BP normal. Depression screening donePt was seen today and Urine drug screen was done. * ROS: G eneral / Constitutional: Fatigue Y es. F ever N o. H eadache N o.?Weight gain N o. W eight loss N o. G astrointestinal: Nausea N o. V omiting N o. P erformance Met: N ormal blood pressure reading documented, follow-up not required ( G8783). * Medical History: Do you have any other disease, condition or problem not listed above that you feel we should know about? If so, Please explain:: Parkinson If you currently have or have ever been diagnosed with cancer in the past, please list the type(s) of cancer here:: Skin Have you had any surgery in the past? If yes, please describe:: No * Family History: M other: cancer. B rother: high blood pressure. S ister: cancer. * Social History: T obacco Use: T obacco Use/Smoking T obacco use: n onsmoker D rug/Alcohol: D rugs H ave you used drugs other than those for medical reasons in the past 12 months? N o Alcohol Screen (Audit-C) D id you have a drink containing alcohol in the past year? Y es H ow often did you have 6 or more drinks on one occasion in the past year? N ever (0 point) H ow many drinks did you have on a typical day when you were drinking in the past year? 1 or 2 drinks (0 point) H ow often did you have a drink containing alcohol in the past year? M onthly or less (1 point) Caffeine I ntake: n one M iscellaneous: E xercise: 5 or more times per week. 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 S ocial History: Starla Santizo arital Status: S blanca * Medications: N ot-TakingEntacapone 200 MG Tablet Oral Mirtazapine 30 MG Tablet Oral Clopidogrel Bisulfate 75 MG Tablet Oral Atorvastatin Calcium 40 MG Tablet Oral FLUoxetine HCl 40 MG Capsule Oral Carbidopa-Levodopa ER 50-200 MG Tablet Extended Release Oral Amantadine HCl 100 MG Capsule Oral Carbidopa-Levodopa 25-100 MG Tablet Oral tiZANidine HCl 2 MG Tablet Oral Cyclobenzaprine HCl 5 MG Tablet Oral methylPREDNISolone 4 MG Tablet Therapy Pack Oral FLUoxetine HCl 20 MG Capsule Oral Not-Taking Entacapone 200 MG Tablet Oral Not-Taking Mirtazapine 30 MG Tablet Oral Not-Taking Clopidogrel Bisulfate 75 MG Tablet Oral Not-Taking Atorvastatin Calcium 40 MG Tablet Oral Not-Taking FLUoxetine HCl 40 MG Capsule Oral Not-Taking Carbidopa-Levodopa ER 50-200 MG Tablet Extended Release Oral Not-Taking Amantadine HCl 100 MG Capsule Oral Not-Taking Carbidopa-Levodopa 25-100 MG Tablet Oral Not-Taking tiZANidine HCl 2 MG Tablet Oral Not-Taking Cyclobenzaprine HCl 5 MG Tablet Oral Not-Taking methylPREDNISolone 4 MG Tablet Therapy Pack Oral Not-Taking FLUoxetine HCl 20 MG Capsule Oral Objective: * Vitals: B P:115/68mm Hg, HR:66/min, Wt:169.8lbs, Wt-k.02 kg, Ht: 69 in, Ht-cm: 175.26 cm, BMI:25.07Index, Body Surface Area: 1.93. Assessment: * Assessment: 1. E ncounter for screening for depression - Z13.31 (Primary) 2 . E ncounter for screening for cardiovascular disorders - Z13.6 Plan: * Labs: * L ab: UDT * Procedure Codes: G 8783 NORMAL BP READING DOC F/U NOT [id number] DRUG TST PRSMV READ INSTRMNT ASSTD DIR OPT [id number] BEHAV ASSMT W/SCORE & DOCD/STAND [id number] CLIN DEPRESSION SCREEN [id number] MOST RECENT SYSTOLIC BP < 140MM [id number] MOST RECENT DIASTOLIC BP < 90MM HG Billing Information: * Procedure Codes: G8783 NORMAL BP READING DOC F/U NOT RQR. 82388 DRUG TST PRSMV READ INSTRMNT ASSTD DIR OPT OBS. 17072 BEHAV ASSMT W/SCORE & DOCD/STAND INSTRUMENT. G8431 CLIN DEPRESSION SCREEN DOC. G8752 MOST RECENT SYSTOLIC BP < 140MM HG. G8754 MOST RECENT DIASTOLIC BP < 90MM HG. * Electronic signature of JAZMÍN Lu on 11/13/2025 at 01:06 PM PIECE PRESSER Sign off status: Pending * Provider: JAZMÍN Salter Date: 0 04/12/2025 Generated for Ramses lucas/Lillie/Rachelle on: 1 01/14/2025 01:06 PM PIECE PRESSER
--- NOTE | ~2025-11-13 | XR_ITS ---
EXAMINATION: XR shoulder LT min 2V, 11/13/2025 11:11 SUGAR CANE GROWER HISTORY: M25.512 - Pain in left shoulder, CHRONIC COMPARISON: No comparisons available. Findings: No acute fracture or malalignment. Severe degenerative changes Soft tissues unremarkable. Impression: No acute fracture or malalignment. Reviewed, dictated and finalized at location P. R CANE GROWER Impression: No acute fracture or malalignment.
--- OUTSIDE RECORDS SUMMARY | 2025-11-13 13:07 | XMS_ITS | Patient Health Record ---
Author Organization [facility] Address [address] [place] [address] Care Team Providers Care Testing Director Name Role Phone Ashley Aden Primary Care Provider Yehuda Adamson Unavailable [phone] Reason For Referral No Information Medications Medication SIG (Take, Route, Frequency, Duration) Notes Start Date End Date Status HYDROcodone-Acetaminophen 5-500 MG 1 capsule as needed Orally every 6 hrs Active Gabapentin 300 MG take 1 Orally Three times a day Active Poqwumwxc-Lnlsloan-Mnfrpne one 12.5-50-200 MG 1 tablet Orally Twice a day Active Entacapone 200 MG 1 tablet Orally Twic e a day Active Azilect 1 MG 1 tablet Orally Once a day Active tiZANidine HCl 2 MG 1 tablet as needed O rally every 8 hrs Active Social History Tobacco use other than smoking: Question Answer Notes Are you an other tobacco user? 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 (723.4) Active confirmed Plan Of Treatment No Information Insurance Providers Payer Name Payer Address Payer Phone Subscriber Number Group Number Insured Name Patient Relationship to Insured Coverage Start Date Coverage End Date [employer] [address] [place] [address] [id number] Shirlene Owens Spouse - patient is the spouse of the insured 2 Medical (General) History Medical History History ICD Code Parkinson's Depression Surgical History Surgery Date(Month/Year) Knee reconstruction
--- OUTSIDE RECORDS SUMMARY | 2025-11-13 13:07 | XMS_ITS | Patient Health Record ---
Author Organization [facility] [employer] Address [address] [place] [address] Care Team Providers Care Patient Biller Name Role Phone Ashli Montgomery MD Primary Care Provider Hyun Rehman Unavailable [phone] Flakito Guidry Unavailable [phone] Allergies No Known Allergies Results Component Value Reference Range Notes UDT Reviewed date:04/13/2025 03:27:29 PM Interpretation: Performing Lab: Notes/Report: Amphetamine (AMP) n 0 - 1000 ng/ml Buprenorphine (BUP) n 0 - 10 ng/ml Oxazepam (BZO) n 0 - 300 ng/ml Cocaine (BRAYDON) n 0 - 300 ng/ml Methamphetamine (mAMP) n 0 - 300 ng/ml Methylenedioxymethamphetamine (MDMA) n 0 - 500 ng/ml Morphine (MOP) n 0 - 25 ng/ml Methadone (MTD) n 0 - 300 ng/ml Oxycodone (OXY) n 0 - 300 ng/ml THC n 0 - 50 ng/ml x n 0 - 1000 ng/ml x n 0 - 1000 ng/ml x n 0 - 300 ng/ml x n 0 - 300 ng/ml x n 0 - 300 ng/ml Reason For Referral No Information Medications Medication SIG (Take, Route, Frequency, Duration) Notes Start Date End Date Status Vitamin C Active Flax Seed Oil Active FLUoxetine HCl 40 MG Capsule 1 capsule Oral daily; Duration: 30 days Active Vitamin E Active Tylenol Active Amantadine HCl 100 MG Capsule 1 capsule Oral 3 times a day; Duration: 90 days Active B12 Active Carbidopa-Levodopa 25-100 MG Tablet 4 tablets in the early intervention specialist, 3 tablets in the morning, 3 tablets in the evening, 3 tablets at night Oral see sign; Duration: 84 days Active Atorvastatin Calcium 40 MG Tablet 1 tablet Oral daily; Duration: 30 days Active MiraLax 17 GM/SCOOP Powder 1 scoop mixed with 8 ounces of fluid Orally Once a day Active Carbidopa-Levodopa ER 50-200 MG Tablet Extended Release Oral; Duration: 90 Days Acti ve Mirtazapine 30 MG Tablet 1 tablet at bed time Oral daily; Duration: 90 days Active Clopidogrel Bisulfate 75 MG Tablet 1 tablet Oral daily; Duration: 30 days Active [place] 3 Active Entacapone 200 MG Tablet 1 tablet Oral 5 times a day; Duration: 30 days Active Social History Tobacco Use: Social History Observation Description Date Details (start date - stop date) Never Smoker NA - NA Sex Assigned At : Social History Observation Description Sex Assigned At Male Social History Social History Social Info Question Answer Notes Household: Marital Status: Single Tobacco Use: Social Info Question Answer Notes Tobacco Use/Smoking Tobacco use: nonsmoker Additional Details Category Social Info Options Details Miscellaneous: Exercise: 5 or more ryder es per week 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 Den ies Problems Problem Type SNOMED Code ICD Code Onset Dates Problem Status W/U Status Risk Notes Problem Moderate recurrent major depression (95669666) MDD (major depressive disorder), recurrent episode, moderate (F33.1) Active confirmed Vital Signs Heart Rate 70 /min 04/13/2025 Height-cm 175.26 cm 04/13/2025 Blood pressure diastolic 69 mm Hg 04/13/2025 Weight-kg 76.84 kg 04/13/2025 Height 69 in 04/13/2025 Blood pressure systolic 117 mm Hg 04/13/2025 Weight 169.4 lbs 04/13/2025 BMI 25.01 kg/m2 04/13/2025 Encounters Encounter Location Date Provider Diagnosis [facility], [facility] [address] [address] 04/13/2025 Flakito Guidry MDD (major depressiv e disorder), recurrent episode, moderate F33.1 ; Cognitive changes R41.89 and Encounter for screening for depression Z13.31 Assessments Encounter Date Diagnosis (ICD Code) Assessment Notes Treatment Notes Treatment Clinical Notes Section Notes 04/13/2025 MDD (major depressive disorder), recurrent episode, moderate (ICD-10 - F33.1) 04/13/2025 Cognitive changes (ICD-10 - R41.89) 04/13/2025 Encounter for screening for depression (ICD-10 - Z13.31) 04/13/2025 Other Learning About Depression Screening material was printed Option #1: Continue current treatment of Prozac 40 mg daily Remeron 30 mg nightly Option #2: Continue current treatment Prozac 40 mg daily Remeron 30 mg nightly *add therapy Option #3: (best option) Increase Prozac to 60 mg daily Remeron 30 mg nightly (with or without therapy) Option #4: Switch Prozac to sertraline Remeron 30 mg nightly (with or without therapy) Option #5: Continue current treatment Prozac 40 mg daily Remeron 30 mg nightly *add Wellbutrin* Alan, a 74-year-old male with a history of Parkinson's disease (diagnosed in 2001) and depression (diagnosed 10-13 years ago), presents with decreased drive, memory concerns, and depressive symptoms since the beginning of the year. Major Depressive Disorder Assessment: Patient reports a recurrence of depressive symptoms, including decreased drive, energy, and concentration, as well as feelings of guilt and worthlessness. These symptoms have been present since the beginning of the year. The patient has a history of depression diagnosed 10-13 years ago and is currently on fluoxetine 40mg daily (for about 4 years) and mirtazapine at night (for about 10 years). The current episode appears to be distinct from the initial depression diagnosis, which occurred around the time of his Parkinson's diagnosis in 2001. The patient's depressive symptoms are complicated by his Parkinson's disease and associated medication regimen, which includes dopaminergic agents that can affect mood and behavior. Plan: - Continue current antidepressant regimen: fluoxetine 40mg daily and mirtazapine 30 mg at night - Await results of upcoming cognitive test before considering medication adjustments - Provided list of therapists for potential psychotherapy - Discussed potential future medication options if needed: - Switching fluoxetine to sertraline - Adding bupropion - Increasing fluoxetine dose - Follow up after cognitive test results are available Parkinson's Disease Assessment: Patient was diagnosed with Parkinson's disease in 2001 and is currently on a complex medication regimen including carbidopa/levodopa , amantadine, and entacapone. The patient reports side effects from his medications, including compulsive spending and hypersexuality. He is considering deep brain stimulation but is not convinced due to the fact that it would reduce but not eliminate his medication needs. The patient is participating in a memory study at [facility] due to concerns about cognitive decline, which may be related to his Parkinson's disease progression or medication side effects. Plan: - Continue current Parkinson's disease medication regimen: - Carbidopa/levodopa 25/100mg (4 tablets morning, 3 tablets four times daily) - Amantadine 100mg (3 times daily) - Entacapone (1 tablet 5 times daily) - Monitor for medication side effects, particularly compulsive behaviors - Await results of upcoming cognitive test to assess cognitive function Cognitive Concerns Assessment: Patient reports concerns about memory slipping and not feeling as sharp as before. He is participating in a memory study at [facility]. A brief cognitive screening test was performed during this visit, resulting in a score of 28, which is within the normal range. The only error noted was in repeating a series of numbers backwards. These cognitive concerns may be related to the patient's Parkinson's disease, depression, or normal aging process. Plan: - Await results of comprehensive cognitive testing scheduled for next Wednesday - Reassess cognitive function and consider treatment options based on test results Insomnia Assessment: Patient reports difficulty sleeping, only able to sleep in a recliner due to lumbar stenosis. He has been on mirtazapine at night for approximately 10 years to address sleep issues. Plan: - Continue mirtazapine at night for sleep - Monitor effectiveness of current sleep regimen Plan Of Treatment Pending Test Test Name Order Date UDT 04/12/2025 Insurance Providers Payer Name Payer Address Payer Phone Subscriber Number Group Number Insured Name Patient Relationship to Insured Coverage Start Date Coverage End Date [employer] - Prime Medicare Replacemen t/Advantag e - Hmo [address] [place] [address] [id number] Alan Romero Self - patient is the insured Medical (General) History Medical History History ICD Code Parkinson Skin cancer Have you had any surgery in the past? If yes, please describe:: No
== END 2025-11-13 10:53 | disposition home or self-care (01) ==
PROVIDERS: PCP Student in an Organized Health Care Education/Training Program; Visit Provider Student in an Organized Health Care Education/Training Program
DX: M25.512 Pain in left shoulder (principal)
CPT/HCPCS: 73030

== ENCOUNTER 2025-11-25 11:29 | Emergency (ER) | payer MEDICARE, SELFPAY ==
[2025-11-25] VITALS (7 sets, daily range): BP systolic 111–138; BP diastolic 73–98; PULSE 59–85; RESP 11–19; TEMP 36.4; O2SAT 94–98
--- NOTE | ~2025-11-25 | XR_ITS ---
Examination: XR chest 2V Clinical History: weakness, SOB with exertion Comparison: 06/29/2024 Technique: PA and Lateral Findings: Cardiomediastinal silhouette normal size and configuration. Mild chronic linear scarring left lower lobe, with elevated left hemidiaphragm. Lungs otherwise clear. No acute bony abnormality. IMPRESSION: 1. No acute cardiopulmonary findings. Reviewed, dictated and finalized at location R. STRAP MAKER
--- NOTE | ~2025-11-25 | US_ITS ---
EXAMINATION: US venous doppler LE RT DATE: 11/25/2025 13:36 INDICATION: Right lower extremity pain and edema. TECHNIQUE: Grayscale ultrasound images without and with compression and Doppler ultrasound images of the right lower extremity veins were obtained. COMPARISON: None. FINDINGS: The visualized portions of right common femoral vein, profunda (deep) femoral vein, femoral vein, popliteal vein, peroneal veins, posterior tibial veins, and greater saphenous vein outflow are patent. IMPRESSION: 1. No deep venous thrombosis involving major veins of right lower extremity.. Reviewed, dictated and finalized at location T. LE WORKER
--- NOTE | 2025-11-25 11:40 | ECG_ITS ---
Test Date: 2025-11-25 11:46:33 Measurements Intervals [place] Rate: 71 P: 41 IN: 188 QRS: -52 QRSD: 106 T: 21 QT: 390 QTc: 426 Interpretive Statements SINUS RHYTHM WITH OCCASIONAL VENTRICULAR PREMATURE COMPLEXES LEFT ANTERIOR FASCICULAR BLOCK VOLTAGE CRITERIA FOR LVH NONSPECIFIC T-WAVE ABNORMALITY- LATERAL LEADS BASELINE ARTIFACT- II, III ABNORMAL ECG Compared to ECG 06/29/2024 10:43:08 HEART RATE HAS INCREASED Left anterior fascicular block now present Electronically Signed On 11-25-2025 20:33:32 POOL LIFEGUARD by Erick Lawrence D.O.
[2025-11-25 11:56] LABS: Hematocrit 45.0 % (42.0-52.0); Hemoglobin 15.4 g/dL (14.0-18.0); Immature Granulocyte Percent A 0.4 % (0-0.5); Lymphocytes Absolute Auto 0.95 K/mm3 (0.9-3.2); Mean Corpuscular HGB Conc 34.2 g/dl (32-36); Mean Corpuscular Hemoglobin 33.5 pg (26-34); Mean Corpuscular Volume 97.8 fl (80-100); Nucleated Red Blood Cells Absolute Auto 0.000 K/mm3 (0.0-0.012); Nucleated Red Blood Cells Perc 0.0 % (0.0-0.2); Platelet Count Result 270 k/mm3 (150-375); Red Blood Count 4.60 M/mm3 (4.6-6.20); White Blood Count 5.5 K/mm3 (4.5-10.0)
[2025-11-25 12:16] LABS: Alanine Aminotransferase 16 U/L (6-50); Albumin Level 4.4 g/dL (3.5-5.1); Alkaline Phosphatase 197 U/L (38-126); Anion Gap 8 mmol/L (4-12); Aspartate Amino Transferase 24 U/L (17-59); Bilirubin,Total 1.0 mg/dL (0.2-1.3); Blood Urea Nitrogen 19 mg/dL (9-20); Calcium 9.2 mg/dL (8.4-10.2); Carbon Dioxide 22 mmol/L (22-30); Chloride 109 mmol/L (98-107); Estimated CRCL calculation 90 ml/min; Estimated Glomerular Filt Rate > 60; Glucose 148 mg/dL (65-110); Potassium 4.2 mmol/L (3.4-5.0); Sodium 139 mmol/L (137-145); Total Protein 7.4 g/dL (6.3-8.2)
--- OUTSIDE RECORDS SUMMARY | 2025-11-25 12:20 | XMS_ITS | Patient Health Record ---
Author Organization [facility] Address [address] [place] [address] Care Team Providers Care Cigarette Catcher Name Role Phone Ashley Aden Primary Care Provider Yehuda Adamson Unavailable [phone] Reason For Referral No Information Medications Medication SIG (Take, Route, Frequency, Duration) Notes Start Date End Date Status HYDROcodone-Acetaminophen 5-500 MG 1 capsule as needed Orally every 6 hrs Active Gabapentin 300 MG take 1 Orally Three times a day Active Uznizkfjq-Bqdyraae-Ltwkqrb one 12.5-50-200 MG 1 tablet Orally Twice [...] Notes Problem Degeneration of cervical intervertebral disc (07826696) 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 (723.4) Active confirmed Plan Of Treatment No Information Insurance Providers Payer Name Payer Address Payer Phone Subscriber Number Group Number Insured Name Patient Relationship to Insured Coverage Start Date Coverage End Date [employer] Y/[employer]P [address] [place] [address] [id number] Shirlene Owens Spouse - patient is the spouse of the insured 2 Medical (General) History Medical History History ICD Code Parkinson's Depression Surgical History Surgery Date(Month/Year) Knee reconstruction
--- OUTSIDE RECORDS SUMMARY | 2025-11-25 12:20 | XMS_ITS | Patient Health Record ---
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 Den ies Problems Problem Type SNOMED Code ICD Code Onset Dates Problem Status W/U Status Risk Notes Problem Moderate recurrent major depression (55041591) MDD (major depressive disorder), recurrent episode, moderate (F33.1) Active confirmed Vital Signs Heart Rate 70 /min 04/13/2025 Height-cm 175.26 cm 04/13/2025 Blood pressure diastolic 69 mm Hg 04/13/2025 Weight-kg 76.84 kg 04/13/2025 Height 69 in 04/13/2025 Blood pressure systolic 117 mm Hg 04/13/2025 Weight 169.4 lbs 04/13/2025 BMI 25.01 kg/m2 04/13/2025 Encounters Encounter Location Date Provider Diagnosis [facility], [facility] [address] [address] 04/13/2025 Flakito Guidry MDD (major depressiv e [...] is participating in a memory study at [facility] due to concerns about cognitive decline, [...] is participating in a memory study at [facility]. A brief cognitive screening test was [...] Replacemen t/Advantag e - Hmo [address] [place] [address] [id number] Alan Romero Self - patient is the insured Medical (General) History Medical History History ICD Code Parkinson Skin cancer Have you had any surgery in the past? If yes, please describe:: No
[2025-11-25] MEDS: IPRATROPIUM 0.5 MG/ALBUTEROL SULFATE 2.5 MG (BASE) AMPUL.NEB 3 ML INHALATION (12:57)
[2025-11-25 13:04] LABS: NT Pro B Type Natriuretic Pept 91 pg/mL (19.9-100)
[2025-11-25 13:20] LABS: Add Urine Microscopic? YES; Appearance Urine Clear (Clear); Glucose Urine UA Negative (Negative); Leukocyte Esterase Ur Negative LEU/UL (Negative); Nitrate Urine Negative (Negative); Specific Grav Ur 1.025 (1.001-1.035)
[2025-11-25 13:26] LABS: Influenza A QL RT-PCR Negative (Negative); Influenza B QL RT-PCR Negative (Negative); RSV RNA, RT-PCR Negative (Negative); SARS-CoV-2 RNA PCR Negative (Negative)
[2025-11-25 13:31] LABS: Non Pathogenic Casts 0-2
--- NOTE | 2025-11-25 14:19 | ED.GENADULT ---
HPI - General Adult General Chief complaint: Weakness Stated complaint: weakness Time Seen by Provider: 11/25/25 11:57 History of Present Illness HPI narrative: Patient is a 74-year-old male who presents ER with generalized weakness. Began today while he was at [employer]. Does felt some general fatigue and tingling to the arms and legs. Tingling improved. No focal weakness or numbness to any arm or leg. No slurred speech. Reports he has also had right lower extremity swelling for 3 weeks that he would like to have checked out. No chest pain or chest pressure. No difficulty breathing. No runny nose or sore throat or productive cough. Related Data Home Medications ?Medication ?Instructions ?Recorded ?Confirmed ?Last Taken ?Type entacapone 200 mg tablet 200 mg PO .five times daily 06/11/20 09/12/25 09/23/22 10:00 History mirtazapine 30 mg tablet 30 mg PO .qhs 06/11/20 09/12/25 1 Day Ago History ~09/22/22 carbidopa ER 50 mg-levodopa 200 mg 1 tablet PO QHS 10/17/21 09/12/25 1 Day Ago History tablet,extended release ~09/22/22 fluoxetine 20 mg capsule 40 mg PO DAILY 04/06/22 09/12/25 1 Day Ago History ~09/22/22 omega 7-mkx-tzl-fish oil 1,200 mg 2 cap PO DAILY 09/11/22 09/12/25 1 Day Ago History (144 mg-216 mg) capsule (Fish Oil) ~09/22/22 polyethylene glycol 3350 17 17 g PO DAILY 09/11/22 09/12/25 1 Day Ago History gram/dose oral powder (Miralax) ~09/22/22 vitamin B complex (B 1 tablet PO DAILY 09/11/22 09/12/25 1 Day Ago History Complex-Vitamin B12 tablet) ~09/22/22 vitamin E 30 unit capsule 3 unit PO DAILY 09/11/22 09/12/25 1 Day Ago History ~09/22/22 ascorbic acid (vitamin C) 250 mg 250 mg PO DAILY 06/29/24 09/12/25 Unknown History chewable tablet carbidopa 25 mg-levodopa 100 mg See Rx Instructions .Route .COMPLEX 09/12/25 09/12/25 Unknown History tablet Allergies Allergy/AdvReac Type Severity Reaction Status Date / Time No Known Allergies Allergy Verified 11/25/25 11:39 Review of Systems Review of Systems: All systems reviewed & are unremarkable except as noted in HPI and below Constitutional: Constitutional: Reports no additional constitutional complaints Cardiovascular: Cardiovascular: Reports no additional cardiovascular complaints Respiratory: Respiratory: Reports no additional respiratory complaints Gastrointestinal: Gastrointestinal: Reports no additional gastrointestinal complaints Musculoskeletal: Musculoskeletal: Reports no additional musculoskeletal complaints [facility] Past Medical History Medical History Muscle spasm of both lower legs Dizziness Low back ache H/O major depression Parkinson's Disease Surgical History Surgical History H/O knee surgery Traumatic fracture L knee 1968 H/O cervical discectomy S/P shoulder replacement Family History Family History Mother Diabetes mellitus Depression Cerebrovascular accident Glaucoma Melanoma Father Cerebrovascular accident Heart disease Hyperlipidemia Sibling Hyperlipidemia Heart disease Depression Lung cancer Grandparent Diabetes mellitus Social History Social History Smoking status: Never smoker Second hand tobacco smoke exposure: No Alcohol intake: never Alcohol use details: rare Substance use: never Substance use type: does not use Lack of Transportation: No Lack of Food: Never True Current Housing: I Have Housing Concerned About Future Housing: No Difficulty Paying Gas/Electric Bills: No Difficulty Paying for Meds: No Currently Unemployed: No Education: High School Diploma/GED Difficulty w/ Childcare or Family Care: No Living arrangements: alone Occupation/Education: retired Gender identity (if verbalized by the patient): Male Sexual Orientation (if Verbalized by the Patient): Straight or Heterosexual Spiritual care concerns: No Agree to blood products: Yes Exam Narrative: GENERAL: Well-appearing, well-nourished, and in no acute distress. HEAD: Normocephalic, atraumatic. ENT: Mucous membranes moist. CHEST: Scattered wheezing. No respiratory distress. HEART: Regular rate and rhythm. Normal peripheral pulses. ABDOMEN: Soft, nontender, nondistended. EXTREMITIES: Normal range of motion. 2+ edema right lower extremity compared to left. SKIN: Warm, dry, no rash. NEURO: Alert and oriented x3. Sensation intact. Clear speech. No facial droop PSYCH: Normal mood and affect. Course Course Emergency Course: Patient resting comfortably. Lungs clear after nebulizer treatment. No DVT on imaging study. Feels well. Up and ambulatory without issue. Reviewed lab results with patient which were without significant abnormality. Patient appropriate for discharge home and follow-up with PCP. Vital Signs Vital signs: Vital Signs Temperature 97.6 F 11/25/25 11:31 Pulse Rate 69 11/25/25 11:31 Respiratory Rate 19 11/25/25 11:31 Blood Pressure 138/79 11/25/25 11:31 Pulse Oximetry 94 11/25/25 11:31 Oxygen Delivery Room Air 11/25/25 11:31 Temperature 97.6 F 11/25/25 11:31 Pulse Rate 85 11/25/25 15:29 Respiratory Rate 19 11/25/25 15:29 Blood Pressure 129/85 11/25/25 15:29 Pulse Oximetry 98 11/25/25 15:29 Oxygen Delivery Room Air 11/25/25 11:31 MDM Differential Diagnosis Differential Diagnosis: Dehydration, EYAL, viral syndrome, DVT, pneumonia, sepsis, TIA Lab Data [facility] Lab Attestation statement: I personally reviewed the patient's lab results. 11/25/25 11:49 11/25/25 11:49 Labs: Lab Results 11/25/25 11/25/25 Range/Units 11:49 12:45 WBC 5.5 (4.5-10.0) K/mm3 RBC 4.60 (4.6-6.20) M/mm3 Hgb 15.4 (14.0-18.0) g/dL Hct 45.0 (42.0-52.0) % MCV 97.8 (80-100) fl MCH 33.5 (26-34) pg MCHC 34.2 (32-36) g/dl RDW 12.3 (11.5-14.5) % Plt Count 270 (150-375) k/mm3 MPV 9.2 (7.4-10.4) fl Immature Gran % (Auto) 0.4 (0-0.5) % Neut % (Auto) 68.8 (45.5-73.1) % Lymph % (Auto) 17.2 L (18.3-44.2) % [place] % (Auto) 11.1 H (2.6-8.5) % Eos % (Auto) 1.8 (0-4.4) % Baso % (Auto) 0.7 (0.2-1.2) % Lymph # (Auto) 0.95 (0.9-3.2) K/mm3 [place] # (Auto) 0.6 (0.1-0.6) K/mm3 Eos # (Auto) 0.1 (0-0.3) K/mm3 Baso # (Auto) 0.0 (0.0-0.1) K/mm3 Abs Immat Gran (auto) 0.02 (0.00-0.031) K/mm3 Absolute Neuts (auto) 3.8 (1.3-6.7) K/mm3 Absolute Nucleated RBC 0.000 (0.0-0.012) K/mm3 Nucleated RBC % 0.0 (0.0-0.2) % Sodium 139 (137-145) mmol/L Potassium 4.2 (3.4-5.0) mmol/L Chloride 109 H (98-107) mmol/L Carbon Dioxide 22 (22-30) mmol/L Anion Gap 8 (4-12) mmol/L BUN 19 (9-20) mg/dL Creatinine 0.62 L (0.7-1.3) mg/dL Estim Creat Clear Calc 90 ml/min Estimated GFR > 60 (59 - ) Glucose 148 H (65-110) mg/dL Calcium 9.2 (8.4-10.2) mg/dL Total Bilirubin 1.0 (0.2-1.3) mg/dL AST 24 (17-59) U/L ALT 16 (6-50) U/L Alkaline Phosphatase 197 H (38-126) U/L NT-Pro-B Natriuret Pep 91 (19.9-100) pg/mL Total Protein 7.4 (6.3-8.2) g/dL Albumin 4.4 (3.5-5.1) g/dL Urine Color Dark yellow (Yellow) Urine Appearance Clear (Clear) Urine pH 5.5 (5.0-9.0) Ur Specific [place] 1.025 (1.001-1.035) Urine Protein Negative (Negative) mg/dL Urine Glucose (UA) Negative (Negative) mg/dL Urine Ketones 1+ H (Negative) mg/dL Ur Blood (Man) Negative (Negative) Urine Nitrate Negative (Negative) Urine Bilirubin Negative (Negative) Urine Urobilinogen 0.2 (<2.0) mg/dL Leukocyte Esterase Rfl Negative (Negative) ARMANDO/UL Urine RBC 0-2 (0-2) /hpf Urine WBC 0-5 (0-3) /hpf Ur Squamous Epith Cells None seen (Few) /hpf Urine Bacteria None seen /hpf Urine Casts 0-2 Influenza A (RT-PCR) Negative (Negative) Influenza B (RT-PCR) Negative (Negative) RSV (RT-PCR) Negative (Negative) SARS-CoV-2 RNA (RT-PCR) Negative (Negative) Imaging Data Radiologist's impression: ITS Impressions Chest X-Ray 11/25/25 12:34 IMPRESSION: 1. No acute cardiopulmonary findings. Venous Doppler Study 11/25/25 13:45 IMPRESSION: 1. No deep venous thrombosis involving major veins of right lower extremity.. ECG Data EKG #1: ECG completion date: 11/25/25 ECG completion time: 11:46 normal rate (71), sinus rhythm, PVCs, non-specific ST changes, normal QRS and normal QT Discharge Plan Discharge Clinical Impression: Generalized weakness, Edema, peripheral Patient Disposition: Home Condition: Stable Instructions: Weakness (ED), Edema (ED) Additional Instructions: Return to the ER if you develop focal weakness in arm or leg, you have chest pain, you cannot breathe, you develop fever over 100.4? F, or you have additional concerns. Patient Language: [place] Prescriptions: No Action entacapone 200 mg tablet 200 mg PO .five times daily Rx Instructions: administer at the same time as l-dopa/carbidopa dose mirtazapine 30 mg tablet 30 mg PO .qhs carbidopa-levodopa 50-200 mg tablet extended release 1 tablet PO QHS fluoxetine 20 mg capsule 40 mg PO DAILY carbidopa-levodopa 25-100 mg tablet See Rx Instructions .ROUTE .COMPLEX Rx Instructions: 6x per day amantadine HCl 100 mg capsule 100 mg PO TID Qty: 30 0RF ascorbic acid (vitamin C) 250 mg Tablet,Chewable 250 mg PO DAILY lidocaine 5 % adhesive patch,medicated 1 patch topical DAILY Qty: 15 0RF Rx Instructions: leave on most painful area for up to 12 hrs atorvastatin 40 mg tablet 40 mg PO DAILY Qty: 100 3RF clopidogrel 75 mg tablet See Rx Instructions .ROUTE .COMPLEX Qty: 90 0RF Dose Instruction: TAKE 1 TABLET BY MOUTH EVERY MORNING Rx Instructions: TAKE 1 TABLET BY MOUTH EVERY MORNING vitamin B complex [B Complex-Vitamin B12] Tablet 1 tablet PO DAILY polyethylene glycol 3350 [Miralax] 17 gram/dose Powder 17 g PO DAILY vitamin E 30 unit Capsule 3 unit PO DAILY omega 7-wud-wgy-fish oil [Fish Oil] 1,200 (144-216) mg Capsule 2 cap PO DAILY Follow-up/Referrals: Donna Oden PA-C [Primary Care Provider, Family Practice] - 1 Week
== END 2025-11-25 16:50 | disposition home or self-care (01) ==
PROVIDERS: Emergency Medicine; Emergency Provider Emergency Medicine; PCP Student in an Organized Health Care Education/Training Program
DX: R53.1 Weakness (principal); R60.0 Localized edema; G20.A1 Parkinson's disease without dyskinesia, without mention of fluctuations; Z96.619 Presence of unspecified artificial shoulder joint; Z20.822 Contact with and (suspected) exposure to COVID-19
CPT/HCPCS: 36415; 71046; 80053; 81001; 83880; 85025; 87637; 93005; 93971; 94640; 99284